=== PATIENT | male | born 1965 | race Caucasian/White ===

== ENCOUNTER 2017-10-24 12:34 | Day surgery (SDC) | payer OTHER ==
[2017-10-20 10:22] VITALS: BMI 36.8
[~2017-10-24 12:34] MED LIST: LACTATED RINGERS 1,000 ML IV SCH; LIDOCAINE 1% 20 ML VIAL (10MG/ML) FOR IV START INTRADERMA PRN
[2017-10-24 13:00] VITALS: TEMP 98.3
[2017-10-24] MEDS ORDERED: LIDOCAINE 1% INJ 10MG/ML (20 ML MDV) ONE (13:10)
[2017-10-24] MEDS ORDERED: PROPOFOL 10 MG/ML 20 ML VIAL IV ONE (13:10)
--- NOTE | 2017-10-24 13:55 | P.PCN ---
Date of Procedure: 10/24/17 Procedure(s) Performed: Procedures: 1. Esophagogastroduodenoscopy and biopsy. 2. Total colonoscopy. Preoperative diagnosis: Dysphagia and blood in the stools. Postoperative diagnosis: 1. Distal esophageal lesion starting at the xuan-GE junction at around 31 cm from the incisors consistent with malignancy. 2. 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 3. Sigmoid diverticulosis with no evidence of acute diverticulitis, strictures, polyps or cancer. Preparation: GoLYTELY prep. Sedation: Was provided by anesthesia. Brief clinical history: The patient is a 52-year-old male who is scheduled for this evaluation because of recent onset of dysphagia around 6 weeks ago and 20 pound weight loss. He was hospitalized 3 years ago because of epigastric pain and atypical chest pain. He also had anemia and dropped his hemoglobin to 6.6. 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 His colonoscopy showed sigmoid diverticulosis. The patient has been having dysphagia for the last 6 weeks or so. He lost 20 pounds over that period of time. He was also noted to have blood in his stools. Procedure: With the patient on his left lateral decubitus position and after informed consent and adequate sedation, I passed the Olympus-GIF 160 video upper endoscope through the cricopharyngeus down the esophagus. The xuan-GE junction was around 30-31 cm from the incisors and it was irregular. There was a circumferential lesion starting at that level with nodularity and friability. The lesion extended into the distal esophagus. There appeared to be a hiatal hernia and I suspected this lesion is in the Champagne's segment which could have been around 3-4 cm in length. There was no obstruction to the lumen and I was able to pass the endoscope into the stomach which was insufflated with air and inspected in detail including the retroflex view in the cardia. There was some friability and oozing of blood noted coming from the distal esophagus but no mass was seen in the cardia. The stomach did not show any obvious abnormalities. Pyloric channel, duodenal bulb, post bulbar area and descending duodenum appeared within normal limits. I obtained multiple biopsies from the distal esophagus then I proceeded with the colonoscopy. Perianal area did not show any fissures or fistulas. There were no masses felt on digital rectal examination. The Olympus CFQ 160L video colonoscope was then inserted in the rectum in the usual fashion and advanced to the cecum. There were multiple diverticular orifices seen scattered in the sigmoid but I saw no evidence of acute diverticulitis or strictures. No polyps or tumors were seen or any potential sources of bleeding in the colon. I retroflexed the endoscope in the rectum before the endoscope was withdrawn. Disposition: The patient tolerated the procedure well. Plan: I summarized the findings to the patient. Will await biopsy results and make further plans.
[2017-10-24 13:58] VITALS: BP 129/72; PULSE 55; RESP 18
== END 2017-10-24 14:20 | disposition home or self-care (01) ==
LOC: ORWHC2ENDO 12:34
DX: C16.0 Malignant neoplasm of cardia (principal); K57.30 Diverticulosis of large intestine without perforation or abscess without bleeding; K44.9 Diaphragmatic hernia without obstruction or gangrene; I10 Essential (primary) hypertension; E78.5 Hyperlipidemia, unspecified; Z86.73 Personal history of transient ischemic attack (TIA), and cerebral infarction without residual deficits; Z88.0 Allergy status to penicillin; Z88.8 Allergy status to other drugs, medicaments and biological substances; Z79.02 Long term (current) use of antithrombotics/antiplatelets; Z79.82 Long term (current) use of aspirin; Z79.899 Other long term (current) drug therapy
CPT/HCPCS: 88305; 43239; J2001; J2704; G0121

== ENCOUNTER → 2017-11-12 | Outpatient (CLI) | payer OTHER ==
--- NOTE | 2017-11-14 13:35 | PE ---
EXAMINATION TYPE: PET CT fusion skull to thigh DATE OF EXAM: 11/12/2017 COMPARISON: NONE HISTORY: Esophageal carcinoma. Initial treatment strategy (PI). No prior chemotherapy or radiation. S taging exam. Known solitary pulmonary nodule within the right lung. TECHNIQUE: Following the intravenous administration of 13.21 mCi of F-18 FDG, whole body images are performed from the skull base to the midthigh. Images are reviewed on the computer in the coronal, a xial, and sagittal planes. Reconstructed rotating images are created on independent workstation and reviewed on the computer. A localization and attenuation correction CT is performed in conjunction with the PET scan. SCAN: Initial FINDINGS: Mediastinal background: 1.89. Abdominal background: 3.29. SKULL BASE AND NECK: No suspicious hypermetabolic activity. CHEST, MEDIASTINUM, AND HILAR REGION: The known primary neoplasm beginning above the gastroesophageal junction within the distal esophagus and crossing the diaphragmatic hiatus into the upper stomach is hypermetabolic with a maximum SUV of 12.35. On reconstructed images this measures approximately 5.8 cm in length, 3.5 cm in transverse dimension and 3.3 cm in anterior posterior dimension. There is no proximal dilation of the esophagus to suggest obstruction. No suspicious hypermetabolic mediastinal lymph nodes are identified. No supraclavicular adenopathy. There is a 5 mm pulmonary nodule on series 3 image 85 within the right middle lobe. This is below the threshold of PET CT. Minimal bibasilar subsegmental atelectasis is seen. Otherwise no additional pul monary nodules or masses are identified. No focal consolidation or pleural effusion. ABDOMEN AND PELVIS: No suspicious hypermetabolic activity. OSSEOUS STRUCTURES: Slightly hypermetabolic activity is seen within the L4 and L5 vertebral bodies wi th maximum SUV of 3.37 and 3.25 respectively. No suspicious osseous lesion is seen. OTHER CT: Mild multilevel degenerative changes of the spine are seen. Paranasal sinuses are well aera adam. No evidence of mediastinal adenopathy. Moderate coronary artery calcifications are seen, a marke r for coronary artery disease. Minimal asymmetric retroareolar gynecomastia is present. No axillary a denopathy. Subsegmental scattered areas of atelectasis are seen within the lungs. The unenhanced live r, spleen, adrenal glands, kidneys, and pancreas are grossly unremarkable in morphology. No nephrolit hiasis or hydronephrosis. Colonic diverticula are seen without pericolonic fat stranding. No greater than 1 cm short axis lymph nodes within the abdomen or pelvis. There is slight thickening in a long s egment of the sigmoid colon that could relate to sequela of chronic diverticulitis. Prostate gland is heterogenous containing central zone calcifications. Urinary bladder is incompletely distended. IMPRESSION: 1. Primary distal esophageal hypermetabolic carcinoma with no adenopathy of the neck, chest, abdomen, or pelvis. 2. No evidence of visceral metastasis, however the 5 mm right middle lobe pulmonary nodule is below t he threshold of PET CT and therefore continued surveillance is recommended for this nodule. 3. Slight hypermetabolic focal activity of the L4 and L5 vertebral bodies without corresponding abnor mality on CT. Enhanced MR lumbar spine could be performed to evaluate for bone marrow replacing metas tasis versus degenerative change.
== END | disposition home or self-care (01) ==
LOC: RADPETMAIN 14:23
PROVIDERS: ATTEND Internal Medicine Hematology & Oncology
DX: C15.5 Malignant neoplasm of lower third of esophagus (principal); R91.1 Solitary pulmonary nodule
CPT/HCPCS: 78815; A9552

== ENCOUNTER 2017-12-05 07:25 | Emergency (ER) | payer OTHER ==
[2017-12-05] MEDS ORDERED: SODIUM CHLORIDE 0.9% 500 ML IV STA (07:42)
[2017-12-05] MEDS ORDERED: ONDANSETRON 4 MG/2 ML VIAL IM STA (07:42)
[2017-12-05 08:14] VITALS: RESP 18
[2017-12-05 08:19] LABS: Anisocytosis Moderate; Basophils % (A) 1 %; Eosinophils # (A) 0.2 k/uL (0-0.7); Eosinophils % (A) 3 %; HCT 28.3 % (39.0-53.0); Hypochromasia Marked; Lymphocytes # (A) 1.5 k/uL (1.0-4.8); Lymphocytes % (A) 17 %; MCH 27.1 pg (25.0-35.0); MCHC 31.8 g/dL (31.0-37.0); MCV 85.2 fL (80.0-100.0); Mean Platelet Volume 8.7; Microcytosis Slight; Monocytes # (A) 0.5 k/uL (0-1.0); Monocytes % (A) 5 %; Neutrophils # (A) 6.4 k/uL (1.3-7.7); Neutrophils % (A) 72 %; Platelet Count 341 k/uL (150-450); Poikilocytosis Slight; RBC 3.32 m/uL (4.30-5.90); RDW 21.1 % (11.5-15.5); WBC 8.9 k/uL (3.8-10.6)
[2017-12-05 08:26] LABS: Partial Thromboplastin Time 24.5 sec (22.0-30.0); Prothrombin Time 10.2 sec (9.0-12.0)
[2017-12-05 08:27] LABS: ALT 32 U/L (21-72); AST 20 U/L (17-59); Albumin 3.8 g/dL (3.5-5.0); Alkaline Phosphatase 95 U/L (38-126); Anion Gap 11 mmol/L; Blood Urea Nitrogen 24 mg/dL (9-20); Calcium 8.8 mg/dL (8.4-10.2); Carbon Dioxide 25 mmol/L (22-30); Chloride 105 mmol/L (98-107); Glucose 112 mg/dL (74-99); Lipase 94 U/L (23-300); Potassium 4.5 mmol/L (3.5-5.1); Sodium 141 mmol/L (137-145); Total Bilirubin 0.5 mg/dL (0.2-1.3); Total Protein 6.1 g/dL (6.3-8.2)
[2017-12-05] MEDS ORDERED: PANTOPRAZOLE 40 MG/10 ML VIAL IVP STA (09:23)
--- NOTE | 2017-12-05 10:00 | ED ---
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 This is been progressing over the past 12 hours. Patient reports over the past few days he has had dark stool. He is scheduled for radiation and chemotherapy, he has not had any treatment to date. Patient denies any pain complaints. He has had some worsening difficulty swallowing over the past several weeks as well. He is currently on Plavix which he takes for history of CVA. No other anticoagulation. - Related Data Home Medications Medication Instructions Recorded Confirmed Losartan Potassium [Cozaar] 100 mg PO HS 10/29/14 12/05/17 Aspirin [Adult Low Dose Aspirin EC] 81 mg PO HS 10/20/17 12/05/17 Clopidogrel [Plavix] 75 mg PO HS 10/20/17 12/05/17 Simvastatin [Zocor] 40 mg PO HS 10/20/17 12/05/17 Iron(Uknown Dose) 1 tab PO HS 12/05/17 12/05/17 Omeprazole [PriLOSEC] 20 mg PO HS 12/05/17 12/05/17 Allergies Allergy/AdvReac Type Severity Reaction Status Date / Time atenolol [From Tenormin] Allergy Rash/Hives Verified 12/05/17 07:37 honey Allergy Swelling Verified 12/05/17 08:17 lisinopril [From Prinivil] Allergy Rash/Hives Verified 12/05/17 07:37 Penicillins Allergy Rash/Hives Verified 12/05/17 07:37 Review of Systems ROS Statement: Those systems with pertinent positive or pertinent negative responses have been documented in the HPI. ROS Other: All systems not noted in ROS Statement are negative. Past Medical History Past Medical History: Cancer, CVA/TIA, GI Bleed, Hyperlipidemia, Hypertension Additional Past Medical History / Comment(s): DYSPHAGIA, CVA 2009, STATES RT SIDE OF FACE NUMB, esophageal cancer History of Any Multi-Drug Resistant Organisms: None Reported Past Surgical History: Orthopedic Surgery Additional Past Surgical History / Comment(s): BONE SPUR REMOVED, EGD Past Anesthesia/Blood Transfusion Reactions: No Reported Reaction Additional Past Anesthesia/Blood Transfusion Reaction / Comment(s): CLAUSTERPHOBIA Past Psychological History: No Psychological Hx Reported Smoking Status: Former smoker Past Alcohol Use History: Occasional Past Drug Use History: None Reported - Past Family History Father Family Medical History: COPD Mother Family Medical History: Cancer General Exam Limitations: no limitations General appearance: alert, in no apparent distress Head exam: Present: atraumatic, normocephalic Eye exam: Present: normal appearance, PERRL ENT exam: Present: normal exam Neck exam: Present: normal inspection. Absent: tenderness, meningismus Respiratory exam: Present: normal lung sounds bilaterally. Absent: respiratory distress, wheezes Cardiovascular Exam: Present: regular rate, normal rhythm GI/Abdominal exam: Present: soft. Absent: distended, tenderness, guarding Rectal exam: Present: normal inspection, heme (+) stool, black stool Extremities exam: Present: normal inspection, normal capillary refill. Absent: pedal edema Neurological exam: Present: alert, oriented X3. Absent: motor sensory deficit Psychiatric exam: Present: normal affect, normal mood Skin exam: Present: warm, pallor Course Vital Signs 12/05/17 12/05/17 07:34 08:13 Temperature 98.2 F Pulse Rate 79 80 Respiratory 20 18 Rate Blood Pressure 115/74 113/63 O2 Sat by Pulse 98 99 Oximetry Medical Decision Making - Medical Decision Making 52-year-old male with recent diagnosis of adenocarcinoma. Patient has had both care at this institution as well as [facility]. He is scheduled for PEG tube next week at [facility] as well as [facility]. There is planned for tumor resection orbit according to the patient is not planned until February. On exam patient is pale: Vital signs are stable. Hemoglobin is 9 from recent baseline of 13. He does have melanotic stool and has had several episodes of hematemesis with blood clots while in the emergency department. He is given normal saline for resuscitation as well as Protonix. Case is discussed with the patient's apprentice cook, at this time given his tumor location and active bleeding and recommends transfer to [facility] with the patient is known. Case discussed with , at [facility], will accept patient as a transfer. - Lab Data Result diagrams: 12/05/17 07:55 12/05/17 07:55 Lab Results 12/05/17 12/05/17 12/05/17 Range/Units 07:55 07:55 07:55 WBC 8.9 (3.8-10.6) k/uL RBC 3.32 L (4.30-5.90) m/uL Hgb 9.0 L D (13.0-17.5) gm/dL Hct 28.3 L (39.0-53.0) % MCV 85.2 (80.0-100.0) fL MCH 27.1 (25.0-35.0) pg MCHC 31.8 (31.0-37.0) g/dL RDW 21.1 H (11.5-15.5) % Plt Count 341 (150-450) k/uL Neutrophils % 72 % Lymphocytes % 17 % Monocytes % 5 % Eosinophils % 3 % Basophils % 1 % Neutrophils # 6.4 (1.3-7.7) k/uL Lymphocytes # 1.5 (1.0-4.8) k/uL Monocytes # 0.5 (0-1.0) k/uL Eosinophils # 0.2 (0-0.7) k/uL Basophils # 0.0 (0-0.2) k/uL Hypochromasia Marked Poikilocytosis Slight Anisocytosis Moderate Microcytosis Slight PT (9.0-12.0) sec INR (<1.2) APTT (22.0-30.0) sec Sodium 141 (137-145) mmol/L Potassium 4.5 (3.5-5.1) mmol/L Chloride 105 (98-107) mmol/L Carbon Dioxide 25 (22-30) mmol/L Anion Gap 11 mmol/L BUN 24 H (9-20) mg/dL Creatinine 0.81 (0.66-1.25) mg/dL Est GFR (CKD-EPI)AfAm >90 (>60 ml/min/1.73 sqM) Est GFR (CKD-EPI)NonAf >90 (>60 ml/min/1.73 sqM) Glucose 112 H (74-99) mg/dL Plasma Lactic Acid Chapin 0.8 (0.7-2.0) mmol/L Calcium 8.8 (8.4-10.2) mg/dL Magnesium 2.0 (1.6-2.3) mg/dL Total Bilirubin 0.5 (0.2-1.3) mg/dL AST 20 (17-59) U/L ALT 32 (21-72) U/L Alkaline Phosphatase 95 (38-126) U/L Total Protein 6.1 L (6.3-8.2) g/dL Albumin 3.8 (3.5-5.0) g/dL Lipase 94 (23-300) U/L Stool Occult Blood (Negative) 12/05/17 12/05/17 Range/Units 07:55 08:10 WBC (3.8-10.6) k/uL RBC (4.30-5.90) m/uL Hgb (13.0-17.5) gm/dL Hct (39.0-53.0) % MCV (80.0-100.0) fL MCH (25.0-35.0) pg MCHC (31.0-37.0) g/dL RDW (11.5-15.5) % Plt Count (150-450) k/uL Neutrophils % % Lymphocytes % % Monocytes % % Eosinophils % % Basophils % % Neutrophils # (1.3-7.7) k/uL Lymphocytes # (1.0-4.8) k/uL Monocytes # (0-1.0) k/uL Eosinophils # (0-0.7) k/uL Basophils # (0-0.2) k/uL Hypochromasia Poikilocytosis Anisocytosis Microcytosis PT 10.2 (9.0-12.0) sec INR 1.0 (<1.2) APTT 24.5 (22.0-30.0) sec Sodium (137-145) mmol/L Potassium (3.5-5.1) mmol/L Chloride (98-107) mmol/L Carbon Dioxide (22-30) mmol/L Anion Gap mmol/L BUN (9-20) mg/dL Creatinine (0.66-1.25) mg/dL Est GFR (CKD-EPI)AfAm (>60 ml/min/1.73 sqM) Est GFR (CKD-EPI)NonAf (>60 ml/min/1.73 sqM) Glucose (74-99) mg/dL Plasma Lactic Acid Chapin (0.7-2.0) mmol/L Calcium (8.4-10.2) mg/dL Magnesium (1.6-2.3) mg/dL Total Bilirubin (0.2-1.3) mg/dL AST (17-59) U/L ALT (21-72) U/L Alkaline Phosphatase (38-126) U/L Total Protein (6.3-8.2) g/dL Albumin (3.5-5.0) g/dL Lipase (23-300) U/L Stool Occult Blood Positive (Negative) Disposition Clinical Impression: GI bleed, Melena, Esophageal adenocarcinoma Disposition: OTHER INSTITUTION NOT DEFINED Condition: Stable Is patient prescribed a controlled substance at d/c from ED?: No Referrals: Neeru Ordonez DO [Primary Care Provider] - 1-2 days Time of Disposition: 10:00 - Out of Hospital Transfer - Req. Specs Out of Hospital Transfer - Requested Specifics: Intensive Care Unit (Transfer to [facility])
[2017-12-05 12:42] VITALS: BP 107/63; PULSE 82; TEMP 98
== END 2017-12-05 11:10 | disposition short-term general hospital (02) ==
LOC: EC 07:25
DX: C15.9 Malignant neoplasm of esophagus, unspecified (principal); K92.1 Melena; K92.0 Hematemesis; R23.1 Pallor; E78.5 Hyperlipidemia, unspecified; I10 Essential (primary) hypertension; Z87.891 Personal history of nicotine dependence; Z79.02 Long term (current) use of antithrombotics/antiplatelets; Z79.82 Long term (current) use of aspirin; Z79.899 Other long term (current) drug therapy; Z88.0 Allergy status to penicillin; Z88.8 Allergy status to other drugs, medicaments and biological substances; Z91.018 Allergy to other foods; Z86.73 Personal history of transient ischemic attack (TIA), and cerebral infarction without residual deficits
CPT/HCPCS: 36415; 80053; 83605; 83690; 83735; 85025; 85610; 85730; 82272; 99285; 96374; 96361 ×2; 96372; J2405; C9113

== ENCOUNTER → 2018-06-22 | Outpatient (CLI) | payer OTHER ==
--- NOTE | 2018-06-22 09:27 | CT ---
EXAMINATION TYPE: CT chest w con DATE OF EXAM: 06/22/2018 COMPARISON: 03/09/2010 HISTORY: ESO CA CT DLP: 607 mGycm Automated exposure control for dose reduction was used. CONTRAST: CT scan of the chest is performed with IV Contrast, patient injected with 100 mL of Isovue 300. FINDINGS: LUNGS: Groundglass density left upper lobe. Mild parenchymal scarring and bibasilar regions. No yonathan rning nodules or masses. There is no pleural effusion or pneumothorax seen. The tracheobronchial kathleen e is patent. MEDIASTINUM: Esophagectomy changes with gastric pull-through procedure. No evidence for recurrent or residual mass. Fluid debris is noted within the neoesophagus. No evidence for mediastinal adenopathy or mass. UPPER ABDOMEN: Mild fatty hepatic infiltration. OTHER: No additional significant abnormality is seen. IMPRESSION: 1. Postoperative changes of esophagectomy with gastric pull-through procedure. No evidence for recurr ent disease or metastatic disease within the imaged field.
== END | disposition home or self-care (01) ==
LOC: RADPROMAIN 08:20
PROVIDERS: ATTEND Internal Medicine Hematology & Oncology
DX: Z03.89 Encounter for observation for other suspected diseases and conditions ruled out (principal); Z85.01 Personal history of malignant neoplasm of esophagus; Z90.49 Acquired absence of other specified parts of digestive tract
CPT/HCPCS: 71260; J1642; Q9967

== ENCOUNTER → 2018-09-22 | Outpatient (CLI) | payer OTHER ==
--- NOTE | 2018-09-22 14:46 | CT ---
EXAMINATION TYPE: CT chest w con DATE OF EXAM: 09/22/2018 COMPARISON: 06/22/2018 HISTORY: Esophageal cancer CT DLP: 391.5 mGycm, Automated exposure control for dose reduction was used. CONTRAST: Performed injected with 100 mL of Isovue 300. TECHNIQUE: Axial images were obtained at 5 mm thick sections. Reconstructed images are reviewed on [employer] computer in the coronal plane. FINDINGS: Portion of the thyroid visualized is normal. No suspicious lung nodules or focal infiltrates are present. No enlarged mediastinal or hilar adenopathy is evident. The ascending aorta diameter at the level o f the main pulmonary artery is 2.7 cm. The main pulmonary artery diameter at the bifurcation is 2.[address] sections are obtained through the upper abdomen. There is been a gastric pull-through. Flu id and debris is within the gastric pull-through to the junction with the residual esophagus. IMPRESSIONS: 1. Stable gastric pull-through. No suspicious changes for recurrent or metastatic disease.
== END ==
LOC: RADPROMAIN 08:17
PROVIDERS: ATTEND Internal Medicine Hematology & Oncology
DX: C15.5 Malignant neoplasm of lower third of esophagus (principal)
CPT/HCPCS: 71260; J1642; Q9967

== ENCOUNTER 2019-02-12 08:47 | Emergency (ER) | payer OTHER ==
[2019-02-12] MEDS ORDERED: SODIUM CHLORIDE 0.9% 500 ML 500 ML IV STA (09:19)
--- NOTE | 2019-02-12 09:28 | ED ---
General Adult HPI - General Chief complaint: Abdominal Pain Stated complaint: Constipation Time Seen by Provider: 02/12/19 09:02 Source: patient, RN notes reviewed Mode of arrival: ambulatory Limitations: no limitations - History of Present Illness Initial comments: 53-year-old male with a past medical history of esophageal cancer with resection a year ago, CVA, hyperlipidemia, hypertension, GI bleed presents to the emergency department for a chief complaint of lower abdominal pain. Sates that this started 2 days ago. States that he started [place] about a week and a half to 2 weeks ago and had not been taking stool softeners with this. States he has not had a bowel movement for 6 days. Does admit to nausea and vomiting with one episode of vomiting last night. No vomiting today. Patient has no other complaints at this time including shortness of breath, chest pain, abdominal pain, nausea or vomiting, headache, or visual changes. - Related Data Home Medications Medication Instructions Recorded Confirmed Clopidogrel [Plavix] 75 mg PO DAILY 10/20/17 02/12/19 Simvastatin [Zocor] 40 mg PO DAILY 10/20/17 02/12/19 Omeprazole [PriLOSEC] 20 mg PO HS 12/05/17 02/12/19 Allergies Allergy/AdvReac Type Severity Reaction Status Date / Time atenolol [From Tenormin] Allergy Rash/Hives Verified 02/12/19 09:26 honey Allergy Swelling Verified 02/12/19 09:26 lisinopril [From Prinivil] Allergy Rash/Hives Verified 02/12/19 09:26 Penicillins Allergy Rash/Hives Verified 02/12/19 09:26 Review of Systems ROS Statement: Those systems with pertinent positive or pertinent negative responses have been documented in the HPI. ROS Other: All systems not noted in ROS Statement are negative. Past Medical History Past Medical History: Cancer, CVA/TIA, GI Bleed, Hyperlipidemia, Hypertension Additional Past Medical History / Comment(s): DYSPHAGIA, CVA 2009, STATES RT SIDE OF FACE NUMB, esophageal cancer History of Any Multi-Drug Resistant Organisms: None Reported Past Surgical History: Orthopedic Surgery Additional Past Surgical History / Comment(s): BONE SPUR REMOVED, EGD. Esophageal Surgery - 2017. Mediport and Feeding Tube - 2017 Past Anesthesia/Blood Transfusion Reactions: No Reported Reaction Additional Past Anesthesia/Blood Transfusion Reaction / Comment(s): CLAUSTERPHOBIA Past Psychological History: No Psychological Hx Reported Smoking Status: Former smoker Past Alcohol Use History: None Reported Past Drug Use History: None Reported - Past Family History Father Family Medical History: COPD Mother Family Medical History: Cancer General Exam Limitations: no limitations General appearance: alert, in no apparent distress Head exam: Present: atraumatic, normocephalic, normal inspection Eye exam: Present: normal appearance, PERRL, EOMI. Absent: scleral icterus, conjunctival injection, periorbital swelling ENT exam: Present: normal exam, mucous membranes moist Neck exam: Present: normal inspection, full ROM. Absent: tenderness, meningismus, lymphadenopathy Respiratory exam: Present: normal lung sounds bilaterally. Absent: respiratory distress, wheezes, rales, rhonchi, stridor Cardiovascular Exam: Present: regular rate, normal rhythm, normal heart sounds. Absent: systolic murmur, diastolic murmur, rubs, gallop, clicks GI/Abdominal exam: Present: soft, tenderness (mild LLQ and suprapubic tenderness without guarding or rebound), normal bowel sounds. Absent: distended, guarding, rebound, rigid Neurological exam: Present: alert Psychiatric exam: Present: normal affect, normal mood Course Vital Signs 02/12/19 02/12/19 02/12/19 08:53 08:56 11:00 Temperature 98.2 F 98.2 F Pulse Rate 87 83 73 Respiratory 18 18 14 Rate Blood Pressure 108/80 108/80 108/77 O2 Sat by Pulse 99 99 98 Oximetry 02/12/19 13:34 Temperature 98.1 F Pulse Rate 66 Respiratory 14 Rate Blood Pressure 107/70 O2 Sat by Pulse 98 Oximetry - Reevaluation(s) Reevaluation #1: 02/12/19 14:55 Myself and mental health unit lead psychologist glen attempted many phone calls to [facility] over the past hour. [facility] where patient has had his esophageal resection and gastric pull-through. Called Dr Irvin Wagner office number given to me by patient, which had a busy signal. I have also attempted to call [phone], which is another office number. I called which is the main hospital and it did not ring. Glen also attempted to call her numbers on file. Medical Decision Making - Medical Decision Making 53-year-old male with a past medical history of esophageal cancer with resection a year ago at [facility], CVA, hyperlipidemia, hypertension, GI bleed presents to the emergency department for lower abdominal pain. This started 2 days ago. States that he has not had a bowel movement for 6 days because he started a [place] about a week and a half ago and has not had any stool softeners with this. Patient did have one episode of vomiting last night, no vomiting today. On exam he does have some left lower quadrant tenderness. Initially thought to be related to constipation given recent opioid use and lack of bowel movement. Labs were obtained which were unremarkable. Mild cytosis likely reactive. CMP is unremarkable. A KUB and initially obtained which showed a mild degree of colonic fecal stasis and overall nonobstructive bowel gas pattern. She was given enema with minimal relief. Therefore CT of the abdomen and pelvis was ordered. CT shows altered hepatic perfusion to nearly the e ntirety of the right lobe thrombus in the main portal vein versus IVC is questionable according to radiologist. Lactic acid was obtained which was 1.3. There is a complex masslike fluid collection in the left lower quadrant that appears to be associated with small bowel loops with surrounding inflammatory change. Superinfected neoplasm versus abscess are considerations. Partial small bowel obstruction. Further findings show soft tissue density within a loop of small bowel which may be site of small bowel neoplasm possible. Also dependent simple free fluid. PTT PT-INR pending at this time. Patient given a dose of Rocephin given possibility of abscess and superinfected neoplasm. Paticherelle nt has had surgery for esophageal cancer at [facility] by Dr. Irvin Wagner and at this time we both feel patient would benefit from transfer to this facility. Discussed this case with Dr. Conklin who accepts this transfer. patient was not started on heparin at this time given risk of GI bleed and Plavix - Lab Data Result diagrams: 02/12/19 09:23 02/12/19 09:23 Lab Results 02/12/19 02/12/19 02/12/19 Range/Units 09:23 09:23 13:15 WBC 12.5 H (3.8-10.6) k/uL RBC 4.36 (4.30-5.90) m/uL Hgb 12.3 L (13.0-17.5) gm/dL Hct 37.1 L (39.0-53.0) % MCV 85.2 (80.0-100.0) fL MCH 28.1 (25.0-35.0) pg MCHC 33.0 (31.0-37.0) g/dL RDW 15.2 (11.5-15.5) % Plt Count 276 (150-450) k/uL Neutrophils % 84 % Lymphocytes % 7 % Monocytes % 6 % Eosinophils % 1 % Basophils % 1 % Neutrophils # 10.5 H (1.3-7.7) k/uL Lymphocytes # 0.9 L (1.0-4.8) k/uL Monocytes # 0.7 (0-1.0) k/uL Eosinophils # 0.1 (0-0.7) k/uL Basophils # 0.1 (0-0.2) k/uL PT (9.0-12.0) sec INR (<1.2) APTT (22.0-30.0) sec Sodium 139 (137-145) mmol/L Potassium 5.0 (3.5-5.1) mmol/L Chloride 101 (98-107) mmol/L Carbon Dioxide 28 (22-30) mmol/L Anion Gap 10 mmol/L BUN 14 (9-20) mg/dL Creatinine 0.63 L (0.66-1.25) mg/dL Est GFR (CKD-EPI)AfAm >90 (>60 ml/min/1.73 sqM) Est GFR (CKD-EPI)NonAf >90 (>60 ml/min/1.73 sqM) Glucose 104 H (74-99) mg/dL Plasma Lactic Acid Chap[place] 1.3 (0.7-2.0) mmol/L Calcium 9.5 (8.4-10.2) mg/dL Total Bilirubin 1.0 (0.2-1.3) mg/dL AST 74 H (17-59) U/L ALT 64 (21-72) U/L Alkaline Phosphatase 349 H (38-126) U/L Total Protein 7.0 (6.3-8.2) g/dL Albumin 3.9 (3.5-5.0) g/dL Amylase 50 (30-110) U/L Lipase 60 (23-300) U/L 02/12/19 Range/Units 14:55 WBC (3.8-10.6) k/uL RBC (4.30-5.90) m/uL Hgb (13.0-17.5) gm/dL Hct (39.0-53.0) % MCV (80.0-100.0) fL MCH (25.0-35.0) pg MCHC (31.0-37.0) g/dL RDW (11.5-15.5) % Plt Count (150-450) k/uL Neutrophils % % Lymphocytes % % Monocytes % % Eosinophils % % Basophils % % Neutrophils # (1.3-7.7) k/uL Lymphocytes # (1.0-4.8) k/uL Monocytes # (0-1.0) k/uL Eosinophils # (0-0.7) k/uL Basophils # (0-0.2) k/uL PT 10.7 (9.0-12.0) sec INR 1.0 (<1.2) APTT 28.7 (22.0-30.0) sec Sodium (137-145) mmol/L Potassium (3.5-5.1) mmol/L Chloride (98-107) mmol/L Carbon Dioxide (22-30) mmol/L Anion Gap mmol/L BUN (9-20) mg/dL Creatinine (0.66-1.25) mg/dL Est GFR (CKD-EPI)AfAm (>60 ml/min/1.73 sqM) Est GFR (CKD-EPI)NonAf (>60 ml/min/1.73 sqM) Glucose (74-99) mg/dL Plasma Lactic Acid [place] (0.7-2.0) mmol/L Calcium (8.4-10.2) mg/dL Total Bilirubin (0.2-1.3) mg/dL AST (17-59) U/L ALT (21-72) U/L Alkaline Phosphatase (38-126) U/L Total Protein (6.3-8.2) g/dL Albumin (3.5-5.0) g/dL Amylase (30-110) U/L Lipase (23-300) U/L Disposition Clinical Impression: Portal vein thrombosis, Mass of colon, Partial small bowel obstruction Disposition: OTHER INSTITUTION NOT DEFINED Condition: Fair Is patient prescribed a controlled substance at d/c from ED?: No Referrals: Neeru Ordonez DO [Primary Care Provider] - 1-2 days Time of Disposition: 14:12 - Out of Hospital Transfer - Req. Specs Out of Hospital Transfer - Requested Specifics: Other Emergency Center ([facility])
[2019-02-12 09:42] LABS: Basophils # (A) 0.1 k/uL (0-0.2); Basophils % (A) 1 %; Eosinophils # (A) 0.1 k/uL (0-0.7); Eosinophils % (A) 1 %; HCT 37.1 % (39.0-53.0); HGB 12.3 gm/dL (13.0-17.5); Lymphocytes # (A) 0.9 k/uL (1.0-4.8); Lymphocytes % (A) 7 %; MCH 28.1 pg (25.0-35.0); MCV 85.2 fL (80.0-100.0); Mean Platelet Volume 9.6; Monocytes # (A) 0.7 k/uL (0-1.0); Monocytes % (A) 6 %; Neutrophils # (A) 10.5 k/uL (1.3-7.7); Neutrophils % (A) 84 %; Platelet Count 276 k/uL (150-450); RBC 4.36 m/uL (4.30-5.90); RDW 15.2 % (11.5-15.5); WBC 12.5 k/uL (3.8-10.6)
--- NOTE | 2019-02-12 09:50 | XR ---
EXAMINATION TYPE: XR KUB DATE OF EXAM: 02/12/2019 9:46 AM CLINICAL HISTORY: Abdominal pain. History of esophageal cancer and gastric pull-through. Constipatio n. TECHNIQUE: Single upright of the abdomen is obtained. COMPARISON: None. FINDINGS: Mild degree colonic fecal stasis. No dilated large or small bowel. No pneumoperitoneum. Aimee gical clips and left mid abdomen. Lung bases are well aerated. Osseous structures appear intact. No s uspicious calcifications in the abdomen or pelvis. IMPRESSION: Mild degree colonic fecal stasis in an overall nonobstructive bowel gas pattern.
[2019-02-12 09:58] LABS: ALT 64 U/L (21-72); AST 74 U/L (17-59); African American GFR (CKD) >90 (>60 ml/min/1.73 sqM); Albumin 3.9 g/dL (3.5-5.0); Alkaline Phosphatase 349 U/L (38-126); Amylase 50 U/L (30-110); Anion Gap 10 mmol/L; Blood Urea Nitrogen 14 mg/dL (9-20); Calcium 9.5 mg/dL (8.4-10.2); Carbon Dioxide 28 mmol/L (22-30); Chloride 101 mmol/L (98-107); Glucose 104 mg/dL (74-99); Sodium 139 mmol/L (137-145)
[2019-02-12] MEDS ORDERED: KETOROLAC 30 MG/ML 1 ML VIAL IVP STA (10:01)
[2019-02-12 11:10] VITALS: RESP 14
--- NOTE | 2019-02-12 13:09 | CT ---
EXAMINATION TYPE: CT abdomen pelvis w con DATE OF EXAM: 02/12/2019 COMPARISON: 03/09/2010 HISTORY: Constipation. History of esophageal cancer. CT DLP: 859.9 mGycm Automated exposure control for dose reduction was used. TECHNIQUE: Helical acquisition of images was performed from the lung bases through the pelvis. CONTRAST: Performed without Oral Contrast and with IV Contrast, patient injected with 100 mL of Isovue 300. FINDINGS: LUNG BASES: New nodular opacity is seen at the left lung base. Areas of linear pleural parenchymal sc arring are seen at the right lung base with subpleural bleb versus tiny pneumothorax. LIVER/GB: There is altered perfusion of the liver with decreased attenuation of the majority the righ t hepatic lobe and preserved perfusion of the left hepatic lobe. There is some patchy opacification o f the portal vein near the carina hepatis on image 19. Given the hepatic findings portal venous thromb us is possible. Mixing of contrast is seen in the suprahepatic and intrahepatic inferior vena cava wi th nonopacification of the inferior vena cava below the renal veins. Too small to accurately characte rize hepatic lesiona is seen along the inferior medial right hepatic lobe. No cholelithiasis. PANCREAS: Pancreatic parenchymal atrophy. No discrete pancreatic lesion seen. SPLEEN: Small amount of perisplenic fluid. No splenic subcapsular hematoma or laceration seen. ADRENALS: Slight thickening of the left adrenal gland may relate to adrenal gland hyperplasia. No dis crete measurable nodule. KIDNEYS: Too small to accurately characterize left renal lesion and parenchymal scarring of the right kidney. No hydronephrosis of either kidney. FREE AIR: No free air is seen. Right lower quadrant air remains within the appendix. ADENOPATHY: No gross evidence of greater than 1 cm short axis lymph node in the abdomen or pelvis. F ew scattered nonenlarged mesenteric lymph nodes seen. The largest on coronal image 40r measuring 7 mm . REPRODUCTIVE ORGANS: Heterogenous prostate gland. URINARY BLADDER: High density layering within the urinary bladder could relate to small calculi. OSSEOUS STRUCTURES: Multilevel mild degenerative changes of the spine. BOWEL: There is mesenteric congestion and mesenteric fat stranding in the left lower quadrant. There is also a left lower quadrant complex density measuring 4.2 x 4.0 cm with internal air that appears to be intimately associated with if not contiguous with loops of small bowel. This is also seen on co gabriele image 35 through 45. Prominent surrounding lymph nodes are seen. This could relate to a mesente tatum/small bowel mass or abscess. Given the degree of fat stranding abscess is a primary consideration . Cranial to this postsurgical changes are seen of the left paracentral ventral abdominal wall in the rectus abdominis. Multiple loops of mildly dilated fluid-filled small bowel are also seen with abnor mal soft tissue density creating a transition point in the left lower quadrant on image 40. This is r edemonstrated on coronal image 58. Moderate colonic fecal stasis. Postsurgical change of the gastric pull-through is partially seen. OTHER: Small amount of free fluid layers within the pelvis dependently. This is simple appearing. IMPRESSION: 1. ALTERED HEPATIC PERFUSION TO NEARLY THE ENTIRETY OF THE RIGHT LOBE. THROMBUS IS QUESTION OF THE MA IN PORTAL VEIN AND COULD BE FURTHER EVALUATED WITH DOPPLER ULTRASOUND. SERUM LACTIC ACID IS ALSO RANJANA MMENDED. 2. COMPLEX MASSLIKE FLUID COLLECTION IN THE LEFT LOWER QUADRANT EITHER CONTIGUOUS WITH 4 INTIMATELY A SSOCIATED WITH BOWEL WITH SURROUNDING INFLAMMATORY CHANGE. SUPERINFECTED NEOPLASM VERSUS ABSCESS ARE CONSIDERATIONS. THIS DOES CREATE AT LEAST PARTIAL SMALL BOWEL OBSTRUCTION AND CAN BE FURTHER EVALUATE D WITH CT WITH ORAL CONTRAST. 3. ABNORMAL SOFT TISSUE DENSITY WITHIN A LOOP OF SMALL BOWEL IN THE LEFT LOWER QUADRANT WITH SUBSEQUE NT DECOMPRESSED LOOPS OF SMALL BOWEL. ADDITIONAL SITE OF SMALL BOWEL NEOPLASM IS POSSIBLE. 3. DEPENDENT SIMPLE FREE FLUID AND MESENTERIC CONGESTION. AGAIN LACTIC ACID IS RECOMMENDED. FINDINGS WERE RELAYED TO THE ORDERING ER PROVIDER EUSEBIO REED BY DR. KOENIG AT 1305 02/12/2019.
[2019-02-12] MEDS ORDERED: cefTRIAXone IN SWFI 1,000 MG/10 ML SYRINGE IVP STA (14:10)
[2019-02-12 15:29] LABS: Partial Thromboplastin Time 28.7 sec (22.0-30.0); Prothrombin Time 10.7 sec (9.0-12.0)
[2019-02-12 17:23] VITALS: BP 141/77; PULSE 64; TEMP 97.6
== END 2019-02-12 17:44 | disposition other institution (70) ==
LOC: EC 08:47
DX: I81 Portal vein thrombosis (principal); K56.600 Partial intestinal obstruction, unspecified as to cause; K59.8 Other specified functional intestinal disorders; K63.89 Other specified diseases of intestine; E78.5 Hyperlipidemia, unspecified; Z87.891 Personal history of nicotine dependence; Z85.01 Personal history of malignant neoplasm of esophagus; Z86.73 Personal history of transient ischemic attack (TIA), and cerebral infarction without residual deficits; Z79.02 Long term (current) use of antithrombotics/antiplatelets; Z79.899 Other long term (current) drug therapy; Z88.8 Allergy status to other drugs, medicaments and biological substances; Z91.018 Allergy to other foods; Z88.0 Allergy status to penicillin
CPT/HCPCS: 36415; 80053; 82150; 83605; 83690; 85025; 85610; 85730; 74018; 74177; 99285; 96374; 96375; 96361; J0696; J1885; Q9967; 87040

== ENCOUNTER 2019-02-22 13:58 | Day surgery (SDC) | payer OTHER ==
[~2019-02-22 13:58] MED LIST changes: +HEPARIN SODIUM,PORCINE 5,000 UNIT/ML 1 ML VIAL SQ ONE; -LACTATED RINGERS 1,000 ML IV SCH; -LIDOCAINE 1% 20 ML VIAL (10MG/ML) FOR IV START INTRADERMA PRN; +Pre Op ABX Message 1 EACH MISC MISCELLANE ONE
[2019-02-22] MEDS ORDERED: LIDOCAINE 1% 20 ML VIAL (10MG/ML) FOR IV START INTRADERMA ONE (14:28)
[2019-02-22] MEDS ORDERED: LACTATED RINGERS 1,000 ML IV ONE (14:29)
[2019-02-22] MEDS ORDERED: ONDANSETRON 4 MG/2 ML VIAL IVP PRN (14:36)
[2019-02-22] MEDS ORDERED: HYDROmorphone 0.5 MG/0.5 ML SYRINGE IVP PRN (14:36)
[2019-02-22] MEDS ORDERED: LACTATED RINGERS 1,000 ML IV SCH (14:45)
[2019-02-22] MEDS ORDERED: ONDANSETRON 4 MG/2 ML VIAL IVP ONE (14:45)
[2019-02-22] MEDS ORDERED: fentaNYL (PF) 50 MCG/ML 2 ML AMP ONE (16:29)
[2019-02-22] MEDS ORDERED: PROPOFOL 10 MG/ML 20 ML VIAL IV ONE (16:29)
[2019-02-22] MEDS ORDERED: MIDAZOLAM 2 MG/2 ML VIAL ONE (16:29)
[2019-02-22] MEDS ORDERED: SODIUM CHLORIDE 0.9% 100 ML with ceFAZolin 2,000 MG IV ONE ×2 (16:41)
[2019-02-22] MEDS ORDERED: BUPIVACAIN-EPI 0.25%-1:200,000 30 ML VIAL SQ ONE (16:44)
[2019-02-22] MEDS ORDERED: NALOXONE 0.4 MG/ML 1 ML VIAL IV PRN (17:08)
[2019-02-22] MEDS ORDERED: HYDROcodone/APAP 5-325MG 1 EACH TAB PO PRN (17:08)
--- NOTE | 2019-02-22 17:10 | P.OP ---
Date of Procedure: 02/22/19 Procedure(s) Performed: PREOPERATIVE DIAGNOSIS: Left abdominal wall nodule POSTOPERATIVE DIAGNOSIS: Same PROCEDURE: Biopsy left abdominal wall nodule, intermediate closure SURGEON: Solo EBL: 2 mL ANESTHESIA: Sedation and local COMPLICATIONS: None OPERATIVE PROCEDURE: Patient placed in the supine position. The patient's abdomen prepped and draped in the usual sterile fashion. The patient's previous J-tube site was addressed. An elliptical incision was made and compassing the previous scar site. Dissection through the subcutaneous tissues took place using electrocautery. This portion of tissue was excised. At the base of the scar tissue there was a firm nodule that was whitish in color. This was excised using electrocautery as well. This was at the level of the fascia. This measured approximately 1 cm in size. Subcutaneous tissues were then closed using interrupted 3-0 Vicryl sutures. Length of intermediate closure 2.3 cm Skin closed using a running 4-0 Monocryl stitch. Skin glue was then applied. DISPOSITION: Stable to recovery room
[2019-02-22 17:22] VITALS: RESP 16; TEMP 98.6
[2019-02-22 17:57] VITALS: BP 105/71; PULSE 87
[2019-02-22] MEDS ORDERED: KETOROLAC 30 MG/ML 1 ML VIAL IVP SCH (18:00)
== END 2019-02-22 18:08 | disposition home or self-care (01) ==
LOC: OR 13:58
PROVIDERS: ATTEND Surgery
DX: C44.509 Unspecified malignant neoplasm of skin of other part of trunk (principal); I10 Essential (primary) hypertension; E78.5 Hyperlipidemia, unspecified; Z87.891 Personal history of nicotine dependence; I69.398 Other sequelae of cerebral infarction; Z86.79 Personal history of other diseases of the circulatory system; K21.9 Gastro-esophageal reflux disease without esophagitis; Z87.898 Personal history of other specified conditions; Z79.02 Long term (current) use of antithrombotics/antiplatelets; Z79.891 Long term (current) use of opiate analgesic; Z79.899 Other long term (current) drug therapy; Z88.0 Allergy status to penicillin; Z88.8 Allergy status to other drugs, medicaments and biological substances
CPT/HCPCS: 88305; 88342; 88341; 22900; J2250; J1644; J2405; J0690; J3010; J2704

== ENCOUNTER → 2019-02-24 | Outpatient (CLI) | payer OTHER ==
--- NOTE | 2019-02-27 07:46 | PE ---
"EXAMINATION TYPE: PET CT fusion skull to thigh DATE OF EXAM: 02/24/2019 COMPARISON: PET CT November 12, [address] abdomen and pelvis HISTORY: Esophageal cancer prog ress study completed chemotherapy December 2017 and radiation treatment January 2018 with surgery 2017. TECHNIQUE: Following the intravenous administration of 11.89 mCi of F-18 FDG, whole body images are performed from the skull base to the midthigh. Images are reviewed on the computer in the coronal, a xial, and sagittal planes. Reconstructed rotating images are created on independent workstation and reviewed on the computer. A noncontrast CT is performed in conjunction with the PET scan. SCAN: Subsequent Scan FINDINGS: SKULL BASE AND NECK: No new areas of suspicious hypermetabolic uptake. CHEST, MEDIASTINUM, AND HILAR REGION: Interval surgery with complete esophagectomy and gastric pull-u p. No new areas of suspicious hypermetabolic uptake. ABDOMEN AND PELVIS: Below diaphragm and surgical scot there is hypermetabolic roughly 1 cm in epig astric region axial image 136 with Max SUV 4.44, some additional suspicious areas for reference 1.1 c m nodule anterior right upper abdomen axial image 158 new from prior study but is ametabolic. There i s 2.2 cm hypermetabolic focus right hepatic lobe axial image [address] correlate. Max SUV is 3.98. The hypodense posterior focus on recent CT is not as well seen on noncontrast CT images . There is more suspicious right mid abdominal 2.3 cm hypermetabolic lesion axial CT image [address] image 162, max SUV is 4.79. Hypermetabolic uptake in wall of the complex masslike fluid collection is identified, size of the les ion is diminished from recent CT. Differential includes infected neoplasm versus abscess as appears t o be contiguous with small bowel loops similar to prior. Just inferior to this there is moderate colo tariq wall thickening with adjacent inflammatory change, acute diverticulitis cannot BE excluded axial image 210, some hypermetabolic uptake is present on PET images. OSSEOUS STRUCTURES: No new areas of hypermetabolic uptake. OTHER CT: Moderate calcified plaque bilateral carotid bulb level. Background Mild underlying emphysematous change. Coronary artery calcification is present which is no adam marker for underlying coronary artery disease. Marked fat replaced atrophy of pancreas redemonstrated. Prominent sigmoid colonic diverticulosis agai n seen. Small amount of free fluid in pelvis axial image 220 is slightly improved from recent CT. Sca ttered pelvic phleboliths. 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 Hepatic meta static disease cannot be excluded as detailed above. Persistent but improving left lower quadrant cav itary lesion as detailed above. Possible acute diverticulitis, correlate clinically. A Yellow level critical message alert has been initiated for Tono Gallegos MD via the VIEO 36 0 | Critical Results System on 02/27/2019 7:43 AM. This message alert has been sent to Tono Gallegos MD via the preferences provided by the clinician for the receipt of Radiology Critical Findings. [facility] ID [id number]."
== END | disposition home or self-care (01) ==
LOC: RADPETMAIN 13:56
PROVIDERS: ATTEND Internal Medicine Hematology & Oncology
DX: C78.6 Secondary malignant neoplasm of retroperitoneum and peritoneum (principal); Z92.21 Personal history of antineoplastic chemotherapy
CPT/HCPCS: 78815; A9552

== ENCOUNTER → 2019-03-01 | Outpatient (CLI) | payer OTHER ==
--- NOTE | 2019-03-02 11:43 | ECHOF ---
Referral Reason:C15.5 Esophageal Ca, Z01.818 Prechemo MEASUREMENTS -------- HEIGHT: 167.6 cm WEIGHT: 67.6 kg BP: RVIDd: 3.1 cm (< 3.3) IVSd: 0.7 cm (0.6 - 1.1) LVIDd: 4.2 cm (3.9 - 5.3) LVPWd: 1.0 cm (0.6 - 1.1) IVSs: 1.4 cm LVIDs: 2.8 cm LVPWs: 1.4 cm LAESV Index (A-L): 19.68 ml/m Ao Diam: 2.7 cm (2.0 - 3.7) AV Cusp: 2.0 cm (1.5 - 2.6) LA Diam: 3.6 cm (2.7 - 3.8) MV EXCURSION: 15.271 mm (> 18.000) MV EF SLOPE: 90 mm/s (70 - 150) EPSS: 0.5 cm MV E Keo: 0.88 m/s MV DecT: 221 ms MV A Keo: 0.71 m/s MV E/A Ratio: 1.24 RAP: 5.00 mmHg RVSP: 20.87 mmHg FINDINGS -------- Sinus rhythm. This was a technically difficult study with suboptimal views. The left ventricular size is normal. Left ventricular wall thickness is normal. Overall left vent ricular systolic function is low-normal with, an EF between 50 - 55 %. The diastolic filling patter n is normal for the age of the patient 10.07. Mid anterior LV wall motion is hypokinetic. The right ventricle is normal in size. The left atrial size is normal. Normal LA size by volume 22+/-6 ml/m2. The right atrial size is normal. Lumason used The aortic valve is trileaflet and appears structurally normal. The mitral valve is normal. There is trace mitral regurgitation. The tricuspid valve appears structurally normal. Trace tricuspid regurgitation present. Right pam tricular systolic pressure is normal at < 35 mmHg. There is no pulmonic regurgitation present. The aortic root size is normal. IVC Not well visulized. There is no pericardial effusion. CONCLUSIONS -------- 1. Sinus rhythm. 2. This was a technically difficult study with suboptimal views. 3. The left ventricular size is normal. 4. Left ventricular wall thickness is normal. 5. Overall left ventricular systolic function is low-normal with, an EF between 50 - 55 %. 6. The diastolic filling pattern is normal for the age of the patient 10.07 7. Mid anterior LV wall motion is hypokinetic. 8. The right ventricle is normal in size. 9. The left atrial size is normal. 10. Normal LA size by volume 22+/-6 ml/m2. 11. The right atrial size is normal. 12. Lumason used 13. The aortic valve is trileaflet and appears structurally normal. 14. The mitral valve is normal. 15. There is trace mitral regurgitation. 16. The tricuspid valve appears structurally normal. 17. Trace tricuspid regurgitation present. 18. Right ventricular systolic pressure is normal at < 35 mmHg. 19. There is no pulmonic regurgitation present. 20. The aortic root size is normal. 21. IVC Not well visulized. 22. There is no pericardial effusion. ALARM ADJUSTER: Edyta Horton RDCS
== END | disposition home or self-care (01) ==
LOC: RADECHMAIN 10:12
PROVIDERS: ATTEND Internal Medicine Hematology & Oncology
DX: I51.89 Other ill-defined heart diseases (principal); C15.5 Malignant neoplasm of lower third of esophagus
CPT/HCPCS: 93306; Q9950

== ENCOUNTER 2019-04-25 16:16 | Inpatient (IN) | payer OTHER ==
[2019-04-25] MEDS ORDERED: SODIUM CHLORIDE 0.9% 1,000 ML IV STA (16:51)
[2019-04-25] MEDS ORDERED: ONDANSETRON 4 MG/2 ML VIAL IVP STA (16:51)
[2019-04-25] MEDS ORDERED: HYDROmorphone 1 MG/ML 1 ML SYRINGE IVP STA (16:51)
[2019-04-25] MEDS ORDERED: FAMOTIDINE 20 MG/2 ML VIAL IV STA (16:52)
--- NOTE | 2019-04-25 16:55 | ED ---
General Adult HPI - General Chief complaint: Abdominal Pain Stated complaint: Abd pain Time Seen by Provider: 04/25/19 16:33 Source: patient, RN notes reviewed Mode of arrival: EMS Limitations: no limitations - History of Present Illness Initial comments: Patient is a pleasant 54-year-old male presenting to the emergency Department with complaints of abdominal discomfort. Onset of symptoms was today. Symptoms have progressively worsened since that time. Symptoms have somewhat improved with medication prior to arrival. Patient did have a normal bowel movement this morning. Patient has nausea without vomiting. Abdominal discomfort is diffuse. Patient does have similar symptoms previous associated with bowel obstruction. Patient has history of esophageal cancer and previous surgery. Patient does have a J-tube present. Patient still has active esophageal and colon cancer. - Related Data Home Medications Medication Instructions Recorded Confirmed Clopidogrel [Plavix] 75 mg PO DAILY 10/20/17 04/25/19 Simvastatin [Zocor] 40 mg PO DAILY 10/20/17 04/25/19 Omeprazole [PriLOSEC] 20 mg PO DAILY 12/05/17 04/25/19 Acetaminophen/Diphenhydramine 2 tab PO DAILY PRN 04/25/19 04/25/19 [Tylenol PM 500-25mg] Dronabinol [Marinol] 5 mg PO DAILY PRN 04/25/19 04/25/19 HYDROcodone/APAP 5-325MG [Mcdonough 1 tab PO Q6HR PRN 04/25/19 04/25/19 5-325] LORazepam [Ativan] 0.5 mg PO BID PRN 04/25/19 04/25/19 Prochlorperazine [Compazine] 10 mg PO Q4H PRN 04/25/19 04/25/19 Allergies Allergy/AdvReac Type Severity Reaction Status Date / Time atenolol [From Tenormin] Allergy Rash/Hives Verified 04/25/19 18:10 honey Allergy Swelling Verified 04/25/19 18:10 lisinopril [From Prinivil] Allergy Rash/Hives Verified 04/25/19 18:10 Penicillins Allergy Rash/Hives Verified 04/25/19 18:10 Review of Systems ROS Statement: Those systems with pertinent positive or pertinent negative responses have been documented in the HPI. ROS Other: All systems not noted in ROS Statement are negative. Constitutional: Denies: fever Eyes: Denies: eye pain ENT: Denies: ear pain Respiratory: Denies: cough, dyspnea Cardiovascular: Denies: chest pain Endocrine: Denies: fatigue Gastrointestinal: Reports: abdominal pain, nausea. Denies: vomiting Genitourinary: Denies: dysuria Musculoskeletal: Denies: back pain Skin: Denies: rash Neurological: Denies: weakness Past Medical History Past Medical History: Cancer, CVA/TIA, GI Bleed, Hyperlipidemia, Hypertension Additional Past Medical History / Comment(s): DYSPHAGIA, CVA 2010, STATES RT SIDE OF FACE NUMB, esophageal cancer History of Any Multi-Drug Resistant Organisms: None Reported Past Surgical History: Orthopedic Surgery Additional Past Surgical History / Comment(s): BONE SPUR REMOVED, EGD. Esophageal Surgery - 2017. Mediport and Feeding Tube - 2017. Mediport - 2018 gastric stenting Past Anesthesia/Blood Transfusion Reactions: No Reported Reaction Additional Past Anesthesia/Blood Transfusion Reaction / Comment(s): CLAUSTERPHOBIA Past Psychological History: No Psychological Hx Reported Smoking Status: Former smoker Past Alcohol Use History: None Reported Past Drug Use History: None Reported - Past Family History Father Family Medical History: COPD Mother Family Medical History: Cancer General Exam Limitations: no limitations General appearance: alert, in no apparent distress Head exam: Present: atraumatic Eye exam: Present: normal appearance, PERRL ENT exam: Present: normal oropharynx Neck exam: Present: normal inspection Respiratory exam: Present: normal lung sounds bilaterally Cardiovascular Exam: Present: regular rate, normal rhythm GI/Abdominal exam: Present: soft, tenderness (Moderate diffuse tenderness), normal bowel sounds. Absent: distended, guarding, rebound, rigid, pulsatile mass Extremities exam: Present: normal inspection Neurological exam: Present: alert Psychiatric exam: Present: normal affect, normal mood Skin exam: Present: normal color Course Vital Signs 04/25/19 04/25/19 04/25/19 16:32 16:37 17:00 Pulse Rate 81 81 85 Respiratory 18 20 18 Rate Blood Pressure 109/78 O2 Sat by Pulse 100 100 98 Oximetry 04/25/19 04/25/19 17:30 18:00 Pulse Rate 94 90 Respiratory 21 17 Rate Blood Pressure 109/78 109/78 O2 Sat by Pulse 99 98 Oximetry Medical Decision Making - Medical Decision Making Patient reevaluated and resting comfortably in bed. Patient does feel somewhat better. Case was discussed with Dr. Delarosa, covering for Dr. Craft, who will admit. Case also discussed with Dr. Keyes, covering for Dr. Cavazos. - Lab Data Result diagrams: 04/25/19 16:50 04/25/19 16:50 Lab Results 04/25/19 04/25/19 04/25/19 Range/Units 16:50 16:50 16:50 WBC 6.8 (3.8-10.6) k/uL RBC 3.49 L (4.30-5.90) m/uL Hgb 10.5 L (13.0-17.5) gm/dL Hct 32.9 L (39.0-53.0) % MCV 94.4 D (80.0-100.0) fL MCH 30.1 (25.0-35.0) pg MCHC 31.9 (31.0-37.0) g/dL RDW 20.3 H (11.5-15.5) % Plt Count 329 (150-450) k/uL Neutrophils % 88 % Lymphocytes % 6 % Monocytes % 4 % Eosinophils % 1 % Basophils % 1 % Neutrophils # 5.9 (1.3-7.7) k/uL Lymphocytes # 0.4 L (1.0-4.8) k/uL Monocytes # 0.3 (0-1.0) k/uL Eosinophils # 0.0 (0-0.7) k/uL Basophils # 0.0 (0-0.2) k/uL Anisocytosis Moderate Macrocytosis Slight PT 10.3 (9.0-12.0) sec INR 1.0 (<1.2) APTT 26.0 (22.0-30.0) sec Sodium 139 (137-145) mmol/L Potassium 4.2 (3.5-5.1) mmol/L Chloride 104 (98-107) mmol/L Carbon Dioxide 27 (22-30) mmol/L Anion Gap 8 mmol/L BUN 15 (9-20) mg/dL Creatinine 0.50 L (0.66-1.25) mg/dL Est GFR (CKD-EPI)AfAm >90 (>60 ml/min/1.73 sqM) Est GFR (CKD-EPI)NonAf >90 (>60 ml/min/1.73 sqM) Glucose 101 H (74-99) mg/dL Calcium 8.9 (8.4-10.2) mg/dL Total Bilirubin 0.3 (0.2-1.3) mg/dL AST 30 (17-59) U/L ALT 29 (21-72) U/L Alkaline Phosphatase 159 H (38-126) U/L Total Protein 6.6 (6.3-8.2) g/dL Albumin 3.3 L (3.5-5.0) g/dL Amylase 49 (30-110) U/L Lipase 63 (23-300) U/L - Radiology Data Radiology results: report reviewed (Computed tomography scan of the abdomen and pelvis does show stent through esophageal cancer and thoracic base. Some fluid and thickening. Transverse colon is prominent air-filled. Fecal debris extends. Some wall thickening of the small bowel loops not excluded. Dilation of small bowel loops not evident.) Disposition Clinical Impression: Abdominal pain Disposition: ADMITTED IP TO THIS HOSP Is patient prescribed a controlled substance at d/c from ED?: No Referrals: Neeru Craft DO [Primary Care Provider] - 1-2 days Decision Time: 19:08
[2019-04-25 17:29] LABS: ALT 29 U/L (21-72); AST 30 U/L (17-59); African American GFR (CKD) >90 (>60 ml/min/1.73 sqM); Albumin 3.3 g/dL (3.5-5.0); Alkaline Phosphatase 159 U/L (38-126); Amylase 49 U/L (30-110); Anion Gap 8 mmol/L; Blood Urea Nitrogen 15 mg/dL (9-20); Calcium 8.9 mg/dL (8.4-10.2); Carbon Dioxide 27 mmol/L (22-30); Chloride 104 mmol/L (98-107); Glucose 101 mg/dL (74-99); Potassium 4.2 mmol/L (3.5-5.1); Sodium 139 mmol/L (137-145); Total Bilirubin 0.3 mg/dL (0.2-1.3); Total Protein 6.6 g/dL (6.3-8.2)
[2019-04-25 17:30] LABS: Anisocytosis Moderate; Basophils % (A) 1 %; Eosinophils % (A) 1 %; HCT 32.9 % (39.0-53.0); HGB 10.5 gm/dL (13.0-17.5); Lymphocytes # (A) 0.4 k/uL (1.0-4.8); Lymphocytes % (A) 6 %; MCH 30.1 pg (25.0-35.0); MCHC 31.9 g/dL (31.0-37.0); Macrocytosis Slight; Mean Platelet Volume 7.8; Monocytes # (A) 0.3 k/uL (0-1.0); Monocytes % (A) 4 %; Neutrophils # (A) 5.9 k/uL (1.3-7.7); Neutrophils % (A) 88 %; Platelet Count 329 k/uL (150-450); RBC 3.49 m/uL (4.30-5.90); RDW 20.3 % (11.5-15.5); WBC 6.8 k/uL (3.8-10.6)
[2019-04-25 17:34] LABS: Prothrombin Time 10.3 sec (9.0-12.0)
[2019-04-25 17:42] LABS: MCV 94.4 fL (80.0-100.0)
--- NOTE | 2019-04-25 18:24 | CT ---
EXAMINATION TYPE: CT abdomen pelvis wo con DATE OF EXAM: 04/25/2019 COMPARISON: Localization CT from PET of 02/24/2019 INDICATION: Generalized abdominal pain. History of esophageal cancer. DLP: 454.4 mGycm, Automated exposure control for dose reduction was used. CONTRAST: 0 mL of Isovue 300. Study performed without Oral Contrast TECHNIQUE: Axial images were obtained from above the diaphragm to the pubic rami in the axial plane a t 5 mm thick sections. Reconstructed images are reviewed on the computer in the coronal plane. FINDINGS: Limited CT sections are obtained the lung bases. There is a stent through the esophageal cancer at t he thoracic base, neoplasm may extend above the stent there is fluid and thickening of the distal eso phagus above the stent. Small right pleural effusion is present. Coronary artery calcifications prese nt. CT ABDOMEN: Jejunal tube is present. Suspected intraperitoneal metastases are not easily identified w ith lack oral contrast. Liver: Normal Spleen: Normal Pancreas: Normal Adrenal glands: Right adrenal gland appears normal. Left adrenal gland appears thickened at 1.0 cm. Gallbladder: Normal Kidneys: No masses are evident. No hydronephrosis is present. No cysts are present. Delayed images were obtained through the kidneys, which remain unremarkable. Aorta: Vascular calcification is within the aorta. Inferior vena cava: Normal. CT PELVIS: Transverse colon is prominent air-filled. Fecal debris extends to the level of the rectum. Some wall thickening of the small bowel loops is not excluded. Dilated small bowel loops are not annie dent. No obvious obstruction is identified. Appendix: Normal as visualized Urinary bladder: Urinary bladder is decompressed and cannot be evaluated. Genitourinary structures: Prostate contains a small calcification. Osseous structures: No suspicious lytic or sclerotic lesions. IMPRESSIONS: 1.
[2019-04-25] MEDS ORDERED: NALOXONE 0.4 MG/ML 1 ML VIAL IV PRN (19:08)
[2019-04-25] MEDS ORDERED: ONDANSETRON 4 MG/2 ML VIAL IVP PRN (19:13)
[2019-04-25] MEDS: SODIUM CHLORIDE 0.9% 1,000 ML IV SCH (21:01)
[2019-04-25] MEDS: HYDROmorphone 1 MG/ML 1 ML SYRINGE IVP PRN (23:07)
[2019-04-26 03:20] VITALS: RESP 18
[2019-04-26 07:39] VITALS: BP 100/68; PULSE 91; TEMP 98.2
[2019-04-26] MEDS: SODIUM CHLORIDE 0.9% 1,000 ML IV SCH (09:13)
[2019-04-26] MEDS: HYDROmorphone 1 MG/ML 1 ML SYRINGE IVP PRN (09:19)
[2019-04-26] MEDS ORDERED: PROCHLORPERAZINE 10 MG TAB PO PRN (09:33)
[2019-04-26] MEDS ORDERED: LORazepam 0.5 MG TAB PO PRN (09:33)
[2019-04-26] MEDS ORDERED: HYDROcodone/APAP 5-325MG 1 EACH TAB PO PRN (09:33)
[2019-04-26 10:53] LABS: Appearance,Urine Clear (Clear); Bilirubin,Urine Negative (Negative); Blood,Urine Negative (Negative); Color,Urine Yellow; Glucose,Urine (UA) Negative (Negative); Ketones,Urine Negative (Negative); Leukocyte Esterase,Urine Moderate (Negative); Mucus,Urine Rare /hpf; Nitrite,Urine Negative (Negative); PH, Urine 5.5 (5.0-8.0); Protein,Urine Negative (Negative); RBC,Urine 1 /hpf (0-5); Specific Gravity,Urine 1.021 (1.001-1.035); WBC,Urine 19 /hpf (0-5)
[2019-04-26 14:57] VITALS: BMI 22.1
--- NOTE | 2019-04-26 17:02 | HP ---
HISTORY AND PHYSICAL This is a combined history and physical and discharge summary. DATE OF SERVICE: 04/26/2019 CHIEF COMPLAINT: Abdominal pain. HISTORY OF PRESENT ILLNESS: This 54-year-old gentleman with a past medical history of multiple medical problems, including history of GI bleed, hypertension, hyperlipidemia, history of dysphagia, history of CVA, has had esophageal surgery for malignancy. The patient also had a recent PET scan on 02/26/2019. The patient completed chemotherapy and radiation also. The patient also had PEG tube feeds. The patient is complaining of abdominal pain which is felt in the anterior part of the abdomen which is severe in character. The patient came to [facility] and was admitted for evaluation and treatment. With conservative treatment, the patient is feeling better. CT scan showed possible constipation, also. WBC 6.2, hemoglobin 10.5. Sodium 139, potassium 4.2. Patient is concerned because the symptoms are similar to the patient's previous symptoms. The patient is followed by Dr. Ordonez in the outpatient setting. PAST MEDICAL HISTORY: 1. History of CVA, TIA. 2. History of GI bleed. 3. Hypertension. 4. Hyperlipidemia. 5. History of dysphagia. 6. History of esophageal malignancy. HOME MEDICATIONS: 1. Wiseman 5 mg q.6 p.r.n. 2. Lipitor 20 mg daily. 3. Plavix 75 mg daily. 4. Dilaudid 1 mg q.3 p.r.n. 5. Ativan 0.5 mg b.i.d. 6. Narcan 0.2 q.2 p.r.n. 7. Zofran 4 mg IV q.8. 8. Compazine 10 mg q.4 p.r.n. PHYSICAL EXAMINATION: Patient is alert, oriented x3. Pulse 70, blood pressure 98/64, respiration 18, temperature 98.4, pulse ox 97% on room air. HEENT: Conjunctivae normal. NECK: No jugular venous distention. CARDIOVASCULAR SYSTEM: S1, S2 muffled. RESPIRATORY SYSTEM: Breath sounds diminished at the bases. No rhonchi. No crackles. ABDOMEN: Soft. Status post PEG tube in situ. Status post healed surgery. No mass palpable. Non-tender. Mild diffuse distention present. Bowel sounds present. No ascites. LEGS: No edema. No swelling. NERVOUS SYSTEM: Higher functions as mentioned earlier. Moves all 4 limbs. No focal motor or sensory deficit. LYMPHATICS: No lymph node palpable in neck, axillae or groin. SKIN: No ulcer, rash, bleeding. JOINTS: No active deforming arthropathy. LABS: WBC 6.8, hemoglobin 10.5. Sodium 139, potassium 4.2. Other labs are noted. ASSESSMENT: 1. Abdominal pain and nausea, possibly secondary to constipation. 2. History of esophageal malignancy, status post surgery, stenting. 3. On PEG tube feeds. 4. History of cerebrovascular accident, transient ischemic attack. 5. History of gastrointestinal bleed. 6. Hypertension. 7. Hyperlipidemia. 8. History of degenerative joint disease. 9. Remote history of ethanol. 10.History of claustrophobia. RECOMMENDATIONS AND DISCUSSION: I recommend to continue current medications, continue with symptomatic treatment. As mentioned earlier, CT scan showed some constipation. Patient is improving significantly. Patient is extremely keen on going home. Patient reports that he has chemotherapy tomorrow. I recommend the following advice and medications: 1. Follow closely with primary physician and Oncology in the outpatient setting. 2. Discharge diet is cardiac. 3. Activity limited until followup. 4. Follow up with Dr. Ordonez in 2 to 3 days. 5. Follow up with Dr. Gallegos as recommended. 6. Ativan 0.5 mg b.i.d. p.r.n. 7. Compazine 10 mg q.4 p.r.n. 8. Marinol 5 mg daily p.r.n. 9. Wiseman 5 mg q.6 p.r.n. 10.Plavix 75 mg p.o. daily. 11.Prilosec 20 mg p.o. daily. 12.Tylenol daily p.r.n. 13.Zocor 40 mg p.o. daily. Once again, the patient will be discharged in stable condition with guarded prognosis. MMODL / IJN: [id number] /
[2019-04-27] MEDS ORDERED: ATORVASTATIN 20 MG TAB PO SCH (09:00)
[2019-04-27] MEDS ORDERED: CLOPIDOGREL 75 MG TAB PO SCH (09:00)
== END 2019-04-26 14:45 | disposition home health service (06) | DRG 392 ==
LOC: EC 16:16 → 4MS4W 19:18
PROVIDERS: ADMIT Internal Medicine; ATTEND Internal Medicine
DX: K59.00 Constipation, unspecified (principal); C18.9 Malignant neoplasm of colon, unspecified; C15.9 Malignant neoplasm of esophagus, unspecified; E78.5 Hyperlipidemia, unspecified; F40.240 Claustrophobia; I10 Essential (primary) hypertension; Z79.02 Long term (current) use of antithrombotics/antiplatelets; Z79.899 Other long term (current) drug therapy; Z82.5 Family history of asthma and other chronic lower respiratory diseases; Z86.73 Personal history of transient ischemic attack (TIA), and cerebral infarction without residual deficits; Z87.891 Personal history of nicotine dependence; Z92.21 Personal history of antineoplastic chemotherapy; Z92.3 Personal history of irradiation; M19.90 Unspecified osteoarthritis, unspecified site; Z88.0 Allergy status to penicillin; Z88.8 Allergy status to other drugs, medicaments and biological substances
CPT/HCPCS: 36415; 74176; 80053; 81001; 82150; 83690; 85025; 85610; 85730; 87077; 87086; 87186; 96361; 96374; 96375; 99285

== ENCOUNTER → 2019-06-26 | Outpatient (CLI) | payer OTHER ==
--- NOTE | 2019-06-27 12:00 | ECHOF ---
Referral Reason:C15.5 Esophageal ca, Chemo Z01.818 MEASUREMENTS -------- HEIGHT: 167.6 cm WEIGHT: 52.2 kg BP: RVIDd: 3.1 cm (< 3.3) IVSd: 0.7 cm (0.6 - 1.1) LVIDd: 3.9 cm (3.9 - 5.3) LVPWd: 1.0 cm (0.6 - 1.1) IVSs: 1.2 cm LVIDs: 3.0 cm LVPWs: 1.4 cm LA Diam: 2.7 cm (2.7 - 3.8) Ao Diam: 3.4 cm (2.0 - 3.7) AV Cusp: 2.2 cm (1.5 - 2.6) MV EXCURSION: 22.451 mm (> 18.000) MV EF SLOPE: 87 mm/s (70 - 150) EPSS: 0.4 cm MV E Keo: 0.49 m/s MV DecT: 332 ms MV A Keo: 0.50 m/s MV E/A Ratio: 0.98 RAP: 15.00 mmHg RVSP: 30.05 mmHg TAPSE: 17.79 mm FINDINGS -------- Sinus rhythm. This was a technically adequate study. The left ventricular size is normal. Left ventricular wall thickness is normal. Overall left vent ricular systolic function is mild-moderately impaired with, an EF between 40 - 45 %. The diastolic filling pattern is normal for the age of the patient 6.36. The right ventricle is normal in size. Normal LA size by volume 22+/-6 ml/m2. The right atrium is normal in size. Interatrial and interventricular septum intact. The aortic valve is trileaflet and appears structurally normal. The mitral valve is normal. Mild tricuspid regurgitation present. Right ventricular systolic pressure is normal at < 35 mmHg. The pulmonic valve was not well visualized. The aortic root size is normal. Normal inferior vena cava with less than 50% inspiratory collapse consistent with estimated right atr ial pressure of 15 mmHg. There is no pericardial effusion. CONCLUSIONS -------- 1. Sinus rhythm. 2. This was a technically adequate study. 3. The left ventricular size is normal. 4. Left ventricular wall thickness is normal. 5. Overall left ventricular systolic function is mild-moderately impaired with, an EF between 40 - 45 %. 6. The diastolic filling pattern is normal for the age of the patient 6.36 7. The right ventricle is normal in size. 8. Normal LA size by volume 22+/-6 ml/m2. 9. The right atrium is normal in size. 10. Interatrial and interventricular septum intact. 11. The aortic valve is trileaflet and appears structurally normal. 12. The mitral valve is normal. 13. Mild tricuspid regurgitation present. 14. Right ventricular systolic pressure is normal at < 35 mmHg. 15. The pulmonic valve was not well visualized. 16. The aortic root size is normal. 17. Normal inferior vena cava with less than 50% inspiratory collapse consistent with estimated right atrial pressure of 15 mmHg. 18. There is no pericardial effusion. TRANSVERSE ABDOMINAL MUSCLE SURGEON: Nannette Núñez RDCS
== END | disposition home or self-care (01) ==
LOC: RADECHMAIN 12:57
PROVIDERS: ATTEND Internal Medicine Hematology & Oncology
DX: I07.1 Rheumatic tricuspid insufficiency (principal); C15.5 Malignant neoplasm of lower third of esophagus
CPT/HCPCS: 93306

== ENCOUNTER → 2019-07-07 | Outpatient (CLI) | payer OTHER ==
--- NOTE | 2019-07-09 12:08 | PE ---
Nuclear medicine PET/CT HISTORY: Esophageal carcinoma, subsequent Patient received 11 mCi F-18 FDG intravenously in delayed scanning was performed from skull base to t he mid thighs. Localization and attenuation correction CT scan was performed. Correlation to prior nuclear medicine PET/CT dated 02/24/2019 Head and neck: There is no evident cervical or supraclavicular adenopathy. 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 At the site of the proximal anastomo sis there is a focal area of hypermetabolic uptake present in the right lateral extent, SUV is 2.8. N onenlarged retrocaval pretracheal node in the precarinal location shows an SUV 2.1. There is a stent present at the gastroesophageal junction level with internal debris present. Small right pleural eff usion is present. Right upper lobe nodule is present on axial image 57 measuring 5 mm. There is some subpleural nodularity present in the right lung base. No associated hypermetabolic uptake however. Th ere is a port in the right pectoral region, right jugular intravenous catheter courses to the level o f the cavoatrial junction. ABDOMEN: There is a focus of uptake present in the left upper quadrant associated with the portion of colon similar to prior exam, the uptake slightly more intense, SUV is 4.5. There is a jejunostomy in the left lower quadrant. Some uptake associated with the bowel is felt likely to be physiologic. Jose Guadalupe ng the pelvic sidewall on the left there is a small focus of uptake present which was not seen on gricel or exam. Retained fecal debris present within the rectum. No inguinal adenopathy. Prostate shows some associated calcification. Osseous structures show no associated hypermetabolic uptake. Uptake in the left hand and wrist likely due to infiltration of the dose. IMPRESSION: Foci of hypermetabolic uptake as described.
== END | disposition home or self-care (01) ==
LOC: RADPETMAIN 14:05
PROVIDERS: ATTEND Internal Medicine Hematology & Oncology
DX: R93.0 Abnormal findings on diagnostic imaging of skull and head, not elsewhere classified (principal); R93.89 Abnormal findings on diagnostic imaging of other specified body structures; C15.5 Malignant neoplasm of lower third of esophagus
CPT/HCPCS: 78815; A9552

== ENCOUNTER → 2019-08-09 | Outpatient (CLI) | payer OTHER ==
--- NOTE | 2019-08-09 13:28 | CT ---
EXAMINATION TYPE: CT abdomen pelvis wo con DATE OF EXAM: 08/09/2019 COMPARISON: PET/CT 07/07/2019 INDICATION: Carcinoma of Esophagus DLP: 760 mGycm, Automated exposure control for dose reduction was used. CONTRAST: 0 mL of Isovue 300. Study performed without Oral Contrast TECHNIQUE: Axial images were obtained from above the diaphragm to the pubic rami in the axial plane a t 5 mm thick sections. Reconstructed images are reviewed on the computer in the coronal plane. FINDINGS: Limited CT sections are obtained the lung bases. There is a small right pleural effusion.. There is irregular thickening of the distal esophagus compatible with esophageal cancer. A stent is present a t the gastroesophageal junction. CT ABDOMEN: Jejunal tube is evident. Liver: Normal Spleen: Normal Pancreas: Normal Adrenal glands: The adrenal glands are normal. Gallbladder: Normal Kidneys: No masses are evident. No hydronephrosis is present. No cysts are present. Study is witho ut oral contrast limiting evaluation. No suspicious renal stones are evident. Aorta: Vascular calcification is within the aorta. Inferior vena cava: Normal. CT PELVIS: Loops of bowel within the abdomen and pelvis are normal. Study is performed without oral contrast limiting bowel evaluation. Fecal debris is within the colon. Appendix: Normal as visualized. There is a small amount of fluid adjacent to the appendix. Clinical m anagement of any suspected appendicitis is recommended. Urinary bladder: Normal. Genitourinary structures: Prostate is unremarkable. A few calcifications are present. Osseous structures: No suspicious lytic or sclerotic lesions. IMPRESSIONS: 1. Thickening of the distal esophagus and fluid. Findings are compatible with the patient's history of esophageal cancer. 2 small amount of fluid may be adjacent to the appendix. Clinical management of any suspected appendicitis will be required.
--- NOTE | 2019-08-09 13:35 | CT ---
EXAMINATION TYPE: CT chest w con DATE OF EXAM: 08/09/2019 COMPARISON: 09/22/2018 HISTORY: Carcinoma of Esophagus CT DLP: 760 mGycm, Automated exposure control for dose reduction was used. CONTRAST: Performed injected with 40 ml mL of Isovue 300. TECHNIQUE: Axial images were obtained at 5 mm thick sections. Reconstructed images are reviewed on [employer] computer in the coronal plane. FINDINGS: Portion of the thyroid visualized is normal. No suspicious lung nodules. There is some infiltrate along the posterior medial right midlung. Correl ate for atelectasis or pneumonia. Underlying mass is difficult to exclude Colonic interposition is present on the right. There is a stent placement through the expected region of the gastroesophageal junction. No enlarged mediastinal or hilar adenopathy is evident. The ascending aorta diameter at the level o f the main pulmonary artery is 2.9 cm. The main pulmonary artery diameter at the bifurcation is 2.[address] sections are obtained through the upper abdomen. Abdomen is essentially unremarkable. IMPRESSIONS: 1. Colonic interposition appears stable. 2. Small right pleural effusion, new. There is a new stent placement at the gastroesophageal junction .
== END | disposition home or self-care (01) ==
LOC: RADCTMAIN 12:11
PROVIDERS: ATTEND Internal Medicine Hematology & Oncology
DX: J90 Pleural effusion, not elsewhere classified (principal); C15.5 Malignant neoplasm of lower third of esophagus; Z96.89 Presence of other specified functional implants; Z88.0 Allergy status to penicillin; Z91.018 Allergy to other foods
CPT/HCPCS: 71260; 74176; Q9967

== ENCOUNTER 2019-09-03 21:09 | Inpatient (IN) | payer OTHER ==
[2019-09-03] MEDS ORDERED: SODIUM CHLORIDE 0.9% 1,000 ML IV STA (21:39)
[2019-09-03] MEDS ORDERED: HYDROcodone/APAP 5-325MG 1 EACH TAB PO STA (21:43)
--- NOTE | 2019-09-03 21:44 | ED ---
General Adult HPI - General Chief complaint: Chest Pain Stated complaint: Chest Pain Time Seen by Provider: 09/03/19 21:14 Source: family, EMS Mode of arrival: EMS Limitations: no limitations - History of Present Illness Initial comments: Dictation was produced using F[employer] dictation software. please excuse any grammatical, word or spelling errors. Chief Complaint: 54-year-old male past medical history of esophageal cancer since of chest pain, left arm pain and right leg pain History of Present Illness: 54-year-old male with past medical history of esophageal cancer presents with 2 days of chest pain, left arm pain and right leg pain. Patient states reports that he had an EGD today however there is no documentation of that in our EMR. Patient states that his symptoms have been ongoing for 2 days. He states he has left bicep pain and right quadriceps pain. He states that the pain is in the muscle. It does not reproduce with movement or palpation. Patient also reports substernal chest pain. States sharp. No radiation. Patient's limited historian secondary to inability to verbalize secondary to his cancer. His cancer doctor is Dr. Gallegos. He is not currently on any chemo or radiation therapy. Patient is scheduled to have a CT tomorrow. Patient denies any history of blood clots. Says no to shortness of breath. He says no to calf pain. He says he had a scope performed by Dr. Menjivar. The ROS documented in this emergency department record has been reviewed and confirmed by me. Those systems with pertinent positive or negative responses have been documented in the HPI. All other systems are other negative and/or noncontributory. PHYSICAL EXAM: General Impression: Alert and oriented x3, not in acute distress, severely cachectic HEENT: Normocephalic atraumatic, extra-ocular movements intact, pupils equal and reactive to light bilaterally, mucous membranes moist. Cardiovascular: Heart regular rate and rhythm, S1&S2 audible, no murmurs, rubs or gallops Chest: Lungs clear to auscultation bilaterally, no rhonchi, no wheeze, no rales, port in the right chest Abdomen: Bowel sounds present, abdomen soft, non-tender, non-distended, no organomegaly Musculoskeletal: Pulses present and equal in all extremities, no peripheral edema Motor: no focal deficits noted Neurological: CN II-XII grossly intact, no focal motor or sensory deficits noted Skin: Intact with no visualized rashes Psych: Normal affect and mood ED course:-year-old male with pain complaints. He states he has chest pain, left biceps pain and right quadriceps pain. Patient is cachectic sick at bedside. Pain is not reproduced. Extremities are ranged without any antalgia. Appears well-appearing. Vital signs upon arrival shows heart rate of 110, worse vital signs within acceptable limits. Laboratory evaluation obtained. Patient is leukocytosis of 18.7, hemoglobin stable at 8.1. No thrombocytosis or thrombocytopenia. Coag panel unremarkable. D-dimer is elevated 2.67. Halina is unremarkable. No signs of acute kidney injury. Troponin is negative. No signs of rhabdomyolysis. Chest x-ray shows right lower lobe infiltrate. Because patient has elevated d-dimer he sent over to CT to rule out pulmonary embolus. Patient also ordered for CT which she was supposed to get tomorrow of the neck for the diagnosis of hoarseness. Discussed patient case with Gayatri who is healthcare consultant for [facility]. Patient will be admitted. No signs of septic shock.. Patient given vancomycin and cefepime for concern of hospital-acquired pneumonia and due to patient's comorbidities.Soft tissue neck CT shows no discrete neck mass. CT angios the chest was obtained due to elevated d-dimer does not show any pulmonary emboli. There is right lower lobe airspace consolidation there is increase. There is concern for infectious process. Patient given antibiotics. Patient will be admitted. Discussed patient case with Gayatri who is healthcare consultant for [facility]. Patient evaluated bedside management of symptoms of septic shock. At this point there is some concern for pneumonia. Oncology will be consulted. EKG interpretation: Ventricular rate 106, sinus tachycardia,. 144, QRS 78, QTc 456. No HI prolongation, no QTC prolongation, no ST or T-wave changes noted. EKG compared to 10/29/2014 showing no changes. Overall, this EKG is unremarkable - Related Data Home Medications Medication Instructions Recorded Confirmed Clopidogrel [Plavix] 75 mg PO DAILY 10/20/17 09/03/19 Simvastatin [Zocor] 40 mg PO DAILY 10/20/17 09/03/19 Omeprazole [PriLOSEC] 20 mg PO BID 12/05/17 09/03/19 Prochlorperazine [Compazine] 10 mg PO Q6H PRN 04/25/19 09/03/19 Gabapentin [Neurontin] 100 mg PO BID 09/03/19 09/03/19 Mupirocin 2% Oint [Bactroban 2% 1 applic TOPICAL TID 09/03/19 09/03/19 Oint] Allergies Allergy/AdvReac Type Severity Reaction Status Date / Time atenolol [From Tenormin] Allergy Rash/Hives Verified 09/03/19 22:30 honey Allergy Swelling Verified 09/03/19 22:30 lisinopril [From Prinivil] Allergy Rash/Hives Verified 09/03/19 22:30 Penicillins Allergy Rash/Hives Verified 09/03/19 22:30 Review of Systems ROS Statement: Those systems with pertinent positive or pertinent negative responses have been documented in the HPI. ROS Other: All systems not noted in ROS Statement are negative. Past Medical History Past Medical History: Cancer, CVA/TIA, GI Bleed, Hyperlipidemia, Hypertension Additional Past Medical History / Comment(s): DYSPHAGIA, CVA 2009, STATES RT SIDE OF FACE NUMB, esophageal cancer History of Any Multi-Drug Resistant Organisms: None Reported Past Surgical History: Orthopedic Surgery Additional Past Surgical History / Comment(s): BONE SPUR REMOVED, EGD. Esophageal Surgery - 2017. Mediport and Feeding Tube - 2017. Mediport - 2018 Past Anesthesia/Blood Transfusion Reactions: No Reported Reaction Additional Past Anesthesia/Blood Transfusion Reaction / Comment(s): CLAUSTER PHOBIA Past Psychological History: No Psychological Hx Reported Smoking Status: Former smoker - Past Family History Father Family Medical History: COPD Mother Family Medical History: Cancer General Exam Limitations: no limitations Course Vital Signs 09/03/19 09/04/19 21:12 00:06 Temperature 98.8 F Pulse Rate 110 H 108 H Respiratory 16 16 Rate Blood Pressure 130/74 96/69 O2 Sat by Pulse 99 97 Oximetry Medical Decision Making - Lab Data Result diagrams: 09/03/19 21:25 09/03/19 21:25 Lab Results 09/03/19 09/03/19 09/03/19 Range/Units 21:25 21:25 21:25 WBC 18.7 H (3.8-10.6) k/uL RBC 2.64 L (4.30-5.90) m/uL Hgb 8.1 L (13.0-17.5) gm/dL Hct 25.6 L (39.0-53.0) % MCV 97.1 (80.0-100.0) fL MCH 30.7 (25.0-35.0) pg MCHC 31.6 (31.0-37.0) g/dL RDW 16.8 H (11.5-15.5) % Plt Count 368 (150-450) k/uL Neutrophils % 92 % Lymphocytes % 3 % Monocytes % 3 % Eosinophils % 0 % Basophils % 0 % Neutrophils # 17.3 H (1.3-7.7) k/uL Lymphocytes # 0.5 L (1.0-4.8) k/uL Monocytes # 0.6 (0-1.0) k/uL Eosinophils # 0.0 (0-0.7) k/uL Basophils # 0.0 (0-0.2) k/uL Anisocytosis Slight Macrocytosis Slight PT 13.0 H (9.0-12.0) sec INR 1.3 H (<1.2) APTT 35.5 H (22.0-30.0) sec D-Dimer 2.67 H (<0.60) mg/L FEU Sodium 134 L (137-145) mmol/L Potassium 3.8 (3.5-5.1) mmol/L Chloride 98 (98-107) mmol/L Carbon Dioxide 29 (22-30) mmol/L Anion Gap 7 mmol/L BUN 22 H (9-20) mg/dL Creatinine 0.40 L (0.66-1.25) mg/dL Est GFR (CKD-EPI)AfAm >90 (>60 ml/min/1.73 sqM) Est GFR (CKD-EPI)NonAf >90 (>60 ml/min/1.73 sqM) Glucose 108 H (74-99) mg/dL Plasma Lactic Acid Chapin (0.7-2.0) mmol/L Calcium 8.7 (8.4-10.2) mg/dL Magnesium 2.1 (1.6-2.3) mg/dL Total Bilirubin 0.8 (0.2-1.3) mg/dL AST 21 (17-59) U/L ALT 10 (4-49) U/L Alkaline Phosphatase 233 H (38-126) U/L Creatine Kinase <20 L (55-170) U/L Troponin I (0.000-0.034) ng/mL Total Protein 6.7 (6.3-8.2) g/dL Albumin 2.9 L (3.5-5.0) g/dL 09/03/19 09/03/19 Range/Units 21:25 21:25 WBC (3.8-10.6) k/uL RBC (4.30-5.90) m/uL Hgb (13.0-17.5) gm/dL Hct (39.0-53.0) % MCV (80.0-100.0) fL MCH (25.0-35.0) pg MCHC (31.0-37.0) g/dL RDW (11.5-15.5) % Plt Count (150-450) k/uL Neutrophils % % Lymphocytes % % Monocytes % % Eosinophils % % Basophils % % Neutrophils # (1.3-7.7) k/uL Lymphocytes # (1.0-4.8) k/uL Monocytes # (0-1.0) k/uL Eosinophils # (0-0.7) k/uL Basophils # (0-0.2) k/uL Anisocytosis Macrocytosis PT (9.0-12.0) sec INR (<1.2) APTT (22.0-30.0) sec D-Dimer (<0.60) mg/L FEU Sodium (137-145) mmol/L Potassium (3.5-5.1) mmol/L Chloride (98-107) mmol/L Carbon Dioxide (22-30) mmol/L Anion Gap mmol/L BUN (9-20) mg/dL Creatinine (0.66-1.25) mg/dL Est GFR (CKD-EPI)AfAm (>60 ml/min/1.73 sqM) Est GFR (CKD-EPI)NonAf (>60 ml/min/1.73 sqM) Glucose (74-99) mg/dL Plasma Lactic Acid Chapin 1.1 (0.7-2.0) mmol/L Calcium (8.4-10.2) mg/dL Magnesium (1.6-2.3) mg/dL Total Bilirubin (0.2-1.3) mg/dL AST (17-59) U/L ALT (4-49) U/L Alkaline Phosphatase (38-126) U/L Creatine Kinase (55-170) U/L Troponin I <0.012 (0.000-0.034) ng/mL Total Protein (6.3-8.2) g/dL Albumin (3.5-5.0) g/dL Disposition Clinical Impression: Chest pain Disposition: ADMITTED IP TO THIS [facility] Condition: Fair Decision Time: 00:49
[2019-09-03 21:48] LABS: Anisocytosis Slight; Basophils % (A) 0 %; Eosinophils % (A) 0 %; HCT 25.6 % (39.0-53.0); HGB 8.1 gm/dL (13.0-17.5); Lymphocytes # (A) 0.5 k/uL (1.0-4.8); Lymphocytes % (A) 3 %; MCH 30.7 pg (25.0-35.0); MCHC 31.6 g/dL (31.0-37.0); MCV 97.1 fL (80.0-100.0); Macrocytosis Slight; Mean Platelet Volume 8.6; Monocytes # (A) 0.6 k/uL (0-1.0); Monocytes % (A) 3 %; Neutrophils # (A) 17.3 k/uL (1.3-7.7); Neutrophils % (A) 92 %; Platelet Count 368 k/uL (150-450); RBC 2.64 m/uL (4.30-5.90); RDW 16.8 % (11.5-15.5); WBC 18.7 k/uL (3.8-10.6)
--- NOTE | 2019-09-03 21:58 | XR ---
EXAMINATION TYPE: XR chest 2V DATE OF EXAM: 09/03/2019 COMPARISON: NONE HISTORY: Chest pain TECHNIQUE: FINDINGS: There is airspace patchy consolidation in the basal segments of the right lower lobe. Left lung is fairly clear. There is small left pleural effusion. There is right pleural effusion. There is no heart failure. Heart size is normal. There is right central venous catheter with tip in the super ior vena cava. IMPRESSION: Right lower lobe pneumonia. Bilateral small pleural effusions. No obvious heart failure.
[2019-09-03 22:00] LABS: ALT 10 U/L (4-49); AST 21 U/L (17-59); African American GFR (CKD) >90 (>60 ml/min/1.73 sqM); Albumin 2.9 g/dL (3.5-5.0); Alkaline Phosphatase 233 U/L (38-126); Anion Gap 7 mmol/L; Blood Urea Nitrogen 22 mg/dL (9-20); Calcium 8.7 mg/dL (8.4-10.2); Carbon Dioxide 29 mmol/L (22-30); Chloride 98 mmol/L (98-107); Creatine Kinase <20 U/L (55-170); Glucose 108 mg/dL (74-99); Magnesium 2.1 mg/dL (1.6-2.3); Non-African American GFR(CKD) >90 (>60 ml/min/1.73 sqM); Potassium 3.8 mmol/L (3.5-5.1); Sodium 134 mmol/L (137-145); Total Bilirubin 0.8 mg/dL (0.2-1.3); Total Protein 6.7 g/dL (6.3-8.2)
[2019-09-03] MEDS ORDERED: VANCOMYCIN IV PER PHARMACY 1 EACH MISC MISCELLANE PRN (22:05)
[2019-09-03] MEDS ORDERED: SODIUM CHLORIDE 0.9% 500 ML 500 ML IV STA (22:05)
[2019-09-03] MEDS ORDERED: MORPHINE SULFATE 4 MG/ML SYRINGE IV STA (22:09)
[2019-09-03 22:10] LABS: INR 1.3 (<1.2)
[2019-09-03 22:11] LABS: Partial Thromboplastin Time 35.5 sec (22.0-30.0)
[2019-09-03] MEDS ORDERED: CEFEPIME 2 GM in SODIUM CHLORIDE 0.9% 100 ML IVPB ONE (22:15)
[2019-09-03] MEDS ORDERED: VANCOMYCIN 1,000 MG in SODIUM CHLORIDE 0.9% 250 ML IVPB ONE (22:30)
[2019-09-03 22:47] LABS: D-Dimer 2.67 mg/L FEU (<0.60)
[2019-09-03] MEDS ORDERED: PNEUMONIA PROTOCOL UTILIZED 1 EACH MISC PO PRN (23:49)
--- NOTE | 2019-09-04 00:44 | CT ---
EXAMINATION TYPE: CT angio chest DATE OF EXAM: 09/04/2019 COMPARISON: 08/09/2019 HISTORY: Elevated d-dimer CT DLP: mGycm Automated exposure control for dose reduction was used. CONTRAST: Performed , patient injected with mL of . The contrast was Isovue 100 mL. There are 3-D post processed images. There is right pleural effusion. There is right lower lobe consolidation and atelectasis. There is ap parent gastric pull-through procedure with surgical clips in the posterior mediastinum. Thoracic aort a is intact. There is no aneurysm or dissection. There is stent at the diaphragmatic hiatus. The neoe sophagus is distended with fluid and air. I see no filling defects in the pulmonary arteries. There is no mediastinal adenopathy. There is increased soft tissue density at the diaphragmatic hiatus there is no sign of pneumoperitone um in the upper images through the abdomen. The left lung is fairly clear. The bony thorax appears in tact. There is jejunostomy tube in the left upper quadrant. No pneumothorax. IMPRESSION: No evidence of pulmonary embolism. Right lower lobe airspace consolidation and atelectasis is significantly increased compared to last C T scan. Small right pleural effusion is similar to old exam. Retained material in the pneumocephalus esophagus similar to old exam.
--- NOTE | 2019-09-04 00:47 | CT ---
EXAMINATION TYPE: CT soft tissue neck w con DATE OF EXAM: 09/04/2019 COMPARISON: None HISTORY: Hoarseness CT DLP: mGycm Automated exposure control for dose reduction was used. CONTRAST: Performed , patient injected with mL of . The contrast was Isovue 100 mL. There is normal branching pattern of the great vessels on the aortic arch. There is apparent medial e sophagus with air-fluid level in the gastric pull-through procedure. There is normal contrast opacifi cation of the carotid arteries and jugular veins. There is opacification of both vertebral arteries. Epiglottis appears normal. Subglottic trachea appears normal. Prevertebral soft tissues appear normal . Tonsils and adenoids appear normal. There is no evidence of a pharyngeal mass. The parotid glands a re symmetric. Submandibular salivary glands are symmetric. I see no significant cervical adenopathy. Exam limited by metal artifact from the dental work. Orbits appear intact. There is fairly normal aer ation of the paranasal sinuses. Cervical spine is intact. IMPRESSION: Negative exam. No discrete neck mass.
[2019-09-04 04:55] VITALS: TEMP 97.6
[2019-09-04] MEDS ORDERED: CEFEPIME 2 GM in SODIUM CHLORIDE 0.9% 100 ML IVPB ONE (05:00)
[2019-09-04] MEDS: VANCOMYCIN 1,000 MG in SODIUM CHLORIDE 0.9% 250 ML IVPB SCH ×2 (07:46→18:19)
[2019-09-04 10:37] VITALS: BMI 16.7
[2019-09-04] MEDS ORDERED: HYDROcodone/APAP 5-325MG 1 EACH TAB PO PRN (10:52)
[2019-09-04] MEDS ORDERED: TEMAZEPAM 15 MG CAP PO PRN (10:53)
[2019-09-04] MEDS ORDERED: ONDANSETRON 4 MG/2 ML VIAL IVP PRN (11:16)
[2019-09-04] MEDS ORDERED: PANTOPRAZOLE 40 MG/10 ML VIAL IVP SCH (11:30)
[2019-09-04] MEDS: HYDROmorphone 0.5 MG/0.5 ML SYRINGE IVP PRN ×2 (11:32→11:37)
[2019-09-04 13:27] VITALS: BP 112/72; RESP 17
[2019-09-04] MEDS ORDERED: PROCHLORPERAZINE 10 MG TAB PO PRN (14:49)
[2019-09-04] MEDS ORDERED: IPRATROPIUM-ALBUTEROL 3 ML NEB INHALATION PRN (14:50)
[2019-09-04] MEDS ORDERED: ALPRAZolam 0.25 MG TAB PO PRN (14:51)
[2019-09-04] MEDS ORDERED: ACETAMINOPHEN TAB 500 MG TAB PO PRN (14:51)
[2019-09-04] MEDS ORDERED: HEPARIN SODIUM,PORCINE 5,000 UNIT/ML 1 ML VIAL SQ SCH (15:00)
--- NOTE | 2019-09-04 15:23 | XR ---
EXAMINATION TYPE: XR Hip Complete RT, XR femur RT DATE OF EXAM: 09/04/2019 CLINICAL HISTORY: Pain. TECHNIQUE: AP and frogleg views of the right hip and femur are obtained. COMPARISON: None. FINDINGS: There is no acute fracture/dislocation evident in the right hip and femur. Right hip joint space fairly well maintained. Femoral head shape preserved. Overlying Soft tissue unremarkable. Imag es of the right femur show no acute fracture. There is posterior vascular calcification. Right knee j oint shows mild to moderate tricompartment joint space loss. IMPRESSION: As above.
[2019-09-04] MEDS ORDERED: CEFEPIME 2 GM in SODIUM CHLORIDE 0.9% 100 ML IVPB SCH (16:00)
[2019-09-04] MEDS ORDERED: MUPIROCIN 2% OINT 22 GM TUBE TOPICAL SCH (16:00)
[2019-09-04] MEDS: IPRATROPIUM-ALBUTEROL 3 ML NEB INHALATION SCH ×2 (16:37→20:37)
[2019-09-04 16:51] VITALS: PULSE 110
[2019-09-04 16:52] LABS: Appearance,Urine Clear (Clear); Bilirubin,Urine Negative (Negative); Blood,Urine Negative (Negative); Color,Urine Yellow; Glucose,Urine (UA) Negative (Negative); Ketones,Urine Negative (Negative); Leukocyte Esterase,Urine Negative (Negative); Nitrite,Urine Negative (Negative); PH, Urine 5.5 (5.0-8.0); Protein,Urine Trace (Negative); Specific Gravity,Urine 1.044 (1.001-1.035); Urobilinogen,Urine <2.0 mg/dL (<2.0)
--- NOTE | 2019-09-04 16:55 | HP ---
HISTORY AND PHYSICAL DATE OF SERVICE: 09/04/2019 CHIEF COMPLAINTS: Chest pain, leg pain and shortness of breath. HISTORY OF PRESENT ILLNESS: This 54-year-old gentleman with a past medical history of multiple medical problems, including esophageal carcinoma, status post radiation and chemotherapy, hypertension, hyperlipidemia, history of GI bleed, history of dysphagia, history of DJD, EGD, esophageal surgery, MediPort feeding tube, history of claustrophobia, being followed by Dr. Ordonez in the outpatient setting, was complaining of increased shortness of breath over the past several days. The patient also had chest pain, mostly in the left arm and also right leg pain. Because of multiple complex medical issues, the patient came to [facility] and was admitted for further evaluation and treatment. The patient had some cough, but the patient had no contact with any sick individuals or any travel at this time. Otherwise, Dr. Gallegos has seen the patient previously. A CT angio of the chest showed right lower lobe pneumonia and there is no evidence of pulmonary embolism. Patient was admitted for further evaluation and treatment. There is no history of any fever, rigor or chills. No history of headache, loss of consciousness, seizures, either. Initial troponins are negative. The EKG, which I reviewed personally, showed sinus tachycardia with ST-T changes. No history of headache, loss of consciousness, seizures. PAST MEDICAL HISTORY: History of esophageal cancer, history of CVA, TIA, GI bleed, hypertension, hyperlipidemia, history of dysphagia. HOME MEDICATIONS: 1. Plavix 75 mg p.o. daily. 2. Compazine 10 mg q.6 p.r.n. 3. Prilosec 20 mg b.i.d. 4. Bactroban 1 application t.i.d. 5. Neurontin 100 mg p.o. b.i.d. 6. Zocor 40 mg p.o. daily. ALLERGIES: ATENOLOL, HONEY, LISINOPRIL, PENICILLIN, AMBIEN. FAMILY HISTORY: History of COPD in the family. SOCIAL HISTORY: Previous history of smoking. No current smoking or alcohol intake. REVIEW OF SYSTEMS: ENT: Diminished hearing. Diminished vision. CARDIOVASCULAR SYSTEM: No angina, palpitations. RESPIRATORY SYSTEM: As mentioned earlier. GI: As mentioned earlier. : No dysuria or retention. NERVOUS SYSTEM: As mentioned earlier. ALLERGY/IMMUNOLOGY: No asthma, hayfever. MUSCULOSKELETAL: As mentioned earlier. HEMATOLOGY/ONCOLOGY: As mentioned earlier. ENDOCRINE: No history of diabetes, hypothyroidism. CONSTITUTIONAL: As mentioned earlier. DERMATOLOGY: Negative. RHEUMATOLOGY: Negative. PSYCHIATRY: As mentioned earlier. PHYSICAL EXAMINATION: Patient alert and oriented x3. Pulse 107, blood pressure 112/72, respirations 17, temperature 97.6, pulse ox 91% on room air. HEENT: Conjunctivae normal. Oral mucosa moist. NECK: No jugular venous distention. No carotid bruit. No lymph node enlargement. CARDIOVASCULAR SYSTEM: S1, S2 muffled. RESPIRATORY SYSTEM: Breath sounds diminished at the bases. Bilateral scattered rhonchi and crackles. Expiratory wheezing also present. ABDOMEN: Soft. Scaphoid. PEG tube in situ. LEGS: No edema. No swelling. NERVOUS SYSTEM: Higher functions as mentioned earlier. Moves all 4 limbs. Diffusely emaciated and weak. LYMPHATICS: No lymph node palpable in neck, axillae or groin. SKIN: No ulcer, rash, bleeding. JOINTS: No active deforming arthropathy. Examination of right leg and right hip is fairly painful. LABS/IMAGING: WBC 18.6, hemoglobin 8.1. INR is 1.3. D-dimer is 2.67. Sodium is 134. Chest x-ray, personally reviewed by me, shows right lower lobe pneumonia. ASSESSMENT: 1. Right lower lobe pneumonia, possibly Gram-negative, possibly aspiration with possible sepsis, present on admission. 2. Left-sided chest pain. Rule out coronary artery disease. 3. Increased white count. 4. Anemia, normocytic. 5. Right thigh pain for evaluation. 6. Increased D-dimer with no evidence of any pulmonary embolism. 7. Hyponatremia. 8. Hypoalbuminemia with severe protein-calorie malnutrition with body mass index of 16.8. 9. History of esophageal cancer, status post surgery. 10.Status post PEG tube placement. 11.History of cerebrovascular accident, transient ischemic attack. 12.History of gastrointestinal bleed. 13.Hypertension. 14.Hyperlipidemia. 15.History of right face numbness. 16.History of claustrophobia. 17.Remote history of nicotine dependence. 18.Possible chronic obstructive pulmonary disease. RECOMMENDATIONS AND DISCUSSION: In this 54-year-old gentleman who presented with multiple complex medical issues, we will monitor the patient closely, continue the current medications, continue symptomatic treatment. Will initiate broad-spectrum IV antibiotics. Otherwise, bronchodilators, IV steroids empirically, and I would also recommend DVT prophylaxis. Resume the home medications. Symptomatic treatment for the pain. I would also recommend pulmonary evaluation. Dr. Gallegos has been consulted. Tube feeds to be resumed. Aspiration precautions. The overall prognosis is extremely guarded in this severely emaciated individual with multiple complex medical issues. Further recommendations to follow. A copy of this dictation is forwarded to Dr. Ordonez, who is the primary physician. MMODL / IJN: [id number] / MTDD
[2019-09-04] MEDS: methylPREDNISolone SOD SUCCI 125 MG/2 ML VIAL IV SCH ×2 (16:57→18:19)
[2019-09-04] MEDS ORDERED: INSULIN ASPART (NovoLOG) 100 UNIT/ML VIAL SQ SCH (17:30)
[2019-09-04 17:49] LABS: Glucose,Whole Blood 80 mg/dL (75-99)
--- NOTE | 2019-09-04 17:54 | P.CONS ---
History of Present Illness - Reason for Consult Consult date: 09/04/19 esophageal adenocarcinoma Requesting physician: Koby Pino - Chief Complaint SOB, AVEL, cough - History of Present Illness Mr Griffiths is a very pleasant 54-year-old male patient of Dr. Gallegos who presented to his PCP Dr. Craft with progressive dysphagia, 3-4 months, 30 pound weight loss in October 2017. He had an EGD on 10/24/17 revealing a large hiatal hernia with distal esophageal lesion. 12/29/17 he had an upper GI bleed he was taken to [facility] transferred to [facility] and seen by Dr. Wagner. Bleeding was stopped, J-tube was placed. He was started on concurrent radiation with weekly carbo/Taxol therapy. Completed concurrent XRT/Chemo, post Tx PET 01/29/[address] [facility], surgery 03/10/18, 1.5mm residual disease, minimal disease in 07/19 LN identified. He did well until February 2019, complaints of progressive weakness, inability to tolerate liquids, abdominal pain. 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 He was hospitalized in March [facility] for small bowel obstruction, he had exploratory surgery with enterostomy. 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 He was started on Taxol/carboplatin/Herceptin 03/08-07/09. More recently having symptoms, was to start nivolumab in Jul, he has wanted to wait to start treatment. Patient states that prior to admission he had increased shortness of breath, cough, he denied fevers, chills, he has rather persistent nausea, he does try to swallow some foods/liquids orally but, most of his nutrition is through the PEG tube, he denies any abdominal pain, cramping, acute changes in bowel or bladder habits. He has not been on treatment since June. I asked him if he thought he aspirated, he said he thinks he might have. Reviewed CT that was performed because of his difficulty breathing, no PE, RLL consolidations suspicious for pneumonia, there was nothing suspicious on CT of the neck. Review of Systems 14 point review of systems is negative except as stated in HPI Past Medical History Past Medical History: Cancer, CVA/TIA, GI Bleed, Hyperlipidemia, Hypertension Additional Past Medical History / Comment(s): DYSPHAGIA, CVA 2010, STATES RT SIDE OF FACE NUMB, esophageal cancer History of Any Multi-Drug Resistant Organisms: None Reported Past Surgical History: Orthopedic Surgery Additional Past Surgical History / Comment(s): BONE SPUR REMOVED, EGD. Esophageal Surgery - 2017. Mediport and Feeding Tube - 2017. Mediport - 2018 Past Anesthesia/Blood Transfusion Reactions: No Reported Reaction Additional Past Anesthesia/Blood Transfusion Reaction / Comm: CLAUSTERPHOBIA Past Psychological History: No Psychological Hx Reported Smoking Status: Former smoker Past Alcohol Use History: Occasional Past Drug Use History: None Reported - Past Family History Father Family Medical History: COPD Mother Family Medical History: Cancer Medications and Allergies Home Medications Medication Instructions Recorded Confirmed Type Clopidogrel [Plavix] 75 mg PO DAILY 10/20/17 09/03/19 History Simvastatin [Zocor] 40 mg PO DAILY 10/20/17 09/03/19 History Omeprazole [PriLOSEC] 20 mg PO BID 12/05/17 09/03/19 History Prochlorperazine [Compazine] 10 mg PO Q6H PRN 04/25/19 09/03/19 History Gabapentin [Neurontin] 100 mg PO BID 09/03/19 09/03/19 History Mupirocin 2% Oint [Bactroban 2% 1 applic TOPICAL TID 09/03/19 09/03/19 History Oint] Allergies Allergy/AdvReac Type Severity Reaction Status Date / Time atenolol [From Tenormin] Allergy Rash/Hives Verified 09/03/19 22:30 honey Allergy Swelling Verified 09/03/19 22:30 lisinopril [From Prinivil] Allergy Rash/Hives Verified 09/03/19 22:30 Penicillins Allergy Rash/Hives Verified 09/03/19 22:30 zolpidem [From Ambien] AdvReac Hallucinati Verified 09/04/19 04:57 ons Physical Exam Vitals: Vital Signs Temp Pulse Pulse Resp BP BP Pulse Ox 09/04/19 13:26 97.6 F 107 H 17 112/72 91 L 09/04/19 08:00 102 H 18 09/04/19 04:54 97.6 F 102 H 18 96/62 93 L 09/04/19 01:25 97.4 F L 108 H 18 96/64 96 09/04/19 00:06 108 H 16 96/69 97 09/03/19 21:12 98.8 F 110 H 16 130/74 99 Intake and Output 09/04/19 09/04/19 09/04/19 06:59 14:59 22:59 Intake Total 1880 Balance 1880 Intake: Intake, IV Titration 1850 Amount Cefepime 2 gm In Sodium 100 Chloride 0.9% 100 ml @ 200 mls/hr IVPB ONCE ONE Rx#:[id number] Sodium Chloride 0.9% 500 1500 ml 500 ml @ 999 mls/hr IV .Q31M STA Rx#:[id number] Vancomycin 1,000 mg In 250 Sodium Chloride 0.9% 250 ml @ 125 mls/hr IVPB ONCE ONE Rx#:[id number] Oral 30 Other: # Voids 2 2 Weight 47.174 kg 47.174 kg - Constitutional emaciated General appearance: cooperative, mild distress - EENT Eyes: anicteric sclerae, EOMI ENT: hearing grossly normal - Neck Neck: no lymphadenopathy - Respiratory Respiratory: right: rhonchi, bilateral: diminished - Cardiovascular Rhythm: regular Heart sounds: normal: S1, S2 Abnormal Heart Sounds: no systolic murmur, no diastolic murmur, no rub, no S3 Gallop, no S4 Gallop, no click, no other leg Peripheral Edema: bilateral: None - Gastrointestinal General gastrointestinal: no absent bowel sounds, no decreased bowel sounds, no distended, no hepatomegaly, no hyperactive bowel sounds, normal bowel sounds, no organomegaly, no rigid, no scaphoid, soft, no splenomegaly, no tenderness, no umbilical hernia, no ventral hernia - Integumentary Integumentary: pale - Neurologic Neurologic: CNII-XII intact - Musculoskeletal muscle wasting of the bilateral masseter Musculoskeletal: generalized weakness - Psychiatric Psychiatric: A&O x's 3, appropriate affect, intact judgment & insight Results CBC & Chem 7: 09/03/19 21:25 09/03/19 21:25 Labs: Abnormal Lab Results - Last 24 Hours (Table) 09/03/19 09/03/19 09/03/19 Range/Units 21:25 21:25 21:25 WBC 18.7 H (3.8-10.6) k/uL RBC 2.64 L (4.30-5.90) m/uL Hgb 8.1 L (13.0-17.5) gm/dL Hct 25.6 L (39.0-53.0) % RDW 16.8 H (11.5-15.5) % Neutrophils # 17.3 H (1.3-7.7) k/uL Lymphocytes # 0.5 L (1.0-4.8) k/uL PT 13.0 H (9.0-12.0) sec INR 1.3 H (<1.2) APTT 35.5 H (22.0-30.0) sec D-Dimer 2.67 H (<0.60) mg/L FEU Sodium 134 L (137-145) mmol/L BUN 22 H (9-20) mg/dL Creatinine 0.40 L (0.66-1.25) mg/dL Glucose 108 H (74-99) mg/dL Alkaline Phosphatase 233 H (38-126) U/L Creatine Kinase <20 L (55-170) U/L Albumin 2.9 L (3.5-5.0) g/dL Comments: CT of the neck report reviewed CT scan - chest: report reviewed (right lower lobe consolidation/atelectasis/pleural effusion, no PE) Assessment and Plan (1) Pneumonia Narrative/Plan: Defer management of the same to Attending and Pulmonary Current Visit: Yes Status: Acute Priority: High Code(s): J18.9 - PNEUMONIA, UNSPECIFIED ORGANISM SNOMED Code(s): 994963855 (2) Esophageal adenocarcinoma Narrative/Plan: Patient has been scheduled for treatment with volume. Patient requested delay in starting treatment, actually requested to start next week. Recommend follow up with primary Oncologist prior to initiation of treatment to re-evaluate performance status after he recovers from current acute illness Current Visit: Yes Status: Acute Priority: High Code(s): C15.9 - MALIGNANT NEOPLASM OF ESOPHAGUS, UNSPECIFIED SNOMED Code(s): 574262364 (3) Iron deficiency anemia due to dietary causes Narrative/Plan: Patient just received 2 doses of Feraheme in the office in the last couple of weeks. No additional iron at this time. Too soon to recheck iron studies. Transfuse to keep hemoglobin greater than 7. Patient is supplemented with PEG tube feeding. Current Visit: Yes Status: Acute Priority: Medium Code(s): D50.8 - OTHER IRON DEFICIENCY ANEMIAS SNOMED Code(s): 182654529
[2019-09-04] MEDS ORDERED: GABAPENTIN 100 MG CAP PO SCH (21:00)
[2019-09-04] MEDS ORDERED: NON FORMULARY DRUG (Omeprazole 20 MG) PO SCH (21:00)
[2019-09-05] MEDS ORDERED: VANCOMYCIN TROUGH DUE 1 EACH MISC MISCELLANE ONE (07:00)
[2019-09-05] MEDS ORDERED: ATORVASTATIN 20 MG TAB PO SCH (09:00)
[2019-09-05] MEDS ORDERED: CLOPIDOGREL 75 MG TAB PO SCH (09:00)
[2019-09-05] MEDS ORDERED: MULTIVITAMINS, THERA 1 EACH TAB PO SCH (12:00)
--- NOTE | 2019-09-07 16:29 | CDI ---
Documentation Clarification Form Date: 09/07/19 From: Victorina Chapman CCS Phone: If you have a question about this query, please contact Sheri Millard, Burn Nurse at [phone] between 8am and 5pm. Admit Date: 09/03/19 Discharge Date:09/04/19 Patient Name: Will Griffiths Visit Number: [id number] ATTENTION: The Clinical Documentation Specialists (CDI) and [facility] Coding Staff appreciate your assistance in clarifying documentation. Please respond to the clarification below the line at the bottom and electronically sign. The CDI & [facility] Coding staff will review the response and follow-up if needed. Please note: Queries are made part of the Legal Health Record. If you have any questions, please contact the author of this message via ITS. Dear Dr. Romero, The patient presented with the following pneumonia with possible sepsis. History/Risk Factors: Esophageal cancer w/ mets, PEG tube, Anemia, Malnutrition Clinical Indicators: Tachycardia, Elevated WBC WBC: 18.7 Lactic acid: 1.1 Blood cultures: No growth after 72 hours Vitals signs on admission: BP 96/69, ND 108, RR 16, Temp 98.8, O2 Sat 97 Treatment: Vancomycin 1000 mg IVPB Q8HR Antibiotics: IV Bolus: Sodium Chloride 0.9% 1,000 ml IV 999 ml/hr Other: Patient left AMA In your professional opinion, please clarify if these findings signify one of the following conditions, whether the condition is POA, and cause, if known: Condition Sepsis ruled out Sepsis Severe Sepsis Septic Shock Other, please specify Unable to determine SIRS Criteria (2 or more of the following may indicate SIRS): -Temperature < 96.8F (36C) or > 101.0F (38.3C) -Heart Rate > 90 bpm -Respiratory Rate > 20 breaths/min or PaCO2 < 32 mmHg -White Blood Cell Count > 12,000 or < 4,000 cells/mm3 or > 10% bands -Lactate >2.0 mmol/L (>4.0 is equivalent to septic shock) Unable to determine MTDD
--- NOTE | 2019-09-08 20:30 | DS ---
DISCHARGE SUMMARY FINAL DIAGNOSES: 1. Right lower lobe pneumonia possibly gram-negative possibly aspiration with aspiration, present on admission. 2. Left-sided chest pain of undetermined etiology. 3. Increased WBC. 4. Anemia, normocytic. 5. Right thigh pain. 6. Increased D-dimer. 7. Hyponatremia. 8. Hypoalbuminemia. 9. History of esophageal cancer. 10.Status post PEG tube placement. 11.History of cerebrovascular accident, transient ischemic attack. 12.Gastrointestinal bleed. 13.Hyperlipidemia. 14.Hypertension. 15.History of right face numbness. 16.History of claustrophobia. 17.Remote history of nicotine dependence. 18.Possible chronic obstructive pulmonary disease. DISCHARGE DISPOSITION: The patient left the hospital AGAINST MEDICAL ADVICE. HISTORY OF PRESENT ILLNESS: This 54-year-old gentleman with past medical history of multiple medical problems admitted with multiple medical issues as mentioned earlier, but however the patient is not willing to stay. The patient left the hospital AGAINST MEDICAL ADVICE. Please refer to the previous H&P and staff notes and other notes for further information. MMODL / IJN: [id number] /
== END 2019-09-04 20:32 | disposition left against medical advice (07) | DRG 177 ==
LOC: EC 21:09 → 5NMEDONC 23:49
PROVIDERS: ADMIT Hospitalist; ATTEND Hospitalist
PROC: 3E0G76Z Introduction of Nutritional Substance into Upper GI, Via Natural or Artificial Opening (ICD-10-PCS; principal; 2019-09-04)
DX: J15.6 Pneumonia due to other Gram-negative bacteria (principal); E43 Unspecified severe protein-calorie malnutrition; R64 Cachexia; E87.1 Hypo-osmolality and hyponatremia; C15.9 Malignant neoplasm of esophagus, unspecified; C78.6 Secondary malignant neoplasm of retroperitoneum and peritoneum; Z68.1 Body mass index [BMI] 19.9 or less, adult; J44.0 Chronic obstructive pulmonary disease with (acute) lower respiratory infection; J69.0 Pneumonitis due to inhalation of food and vomit; R00.0 Tachycardia, unspecified; I10 Essential (primary) hypertension; E78.5 Hyperlipidemia, unspecified; R13.10 Dysphagia, unspecified; M19.90 Unspecified osteoarthritis, unspecified site; K44.9 Diaphragmatic hernia without obstruction or gangrene; D63.0 Anemia in neoplastic disease; D50.8 Other iron deficiency anemias; F40.240 Claustrophobia; M79.651 Pain in right thigh; Z71.3 Dietary counseling and surveillance; Z79.02 Long term (current) use of antithrombotics/antiplatelets; Z79.899 Other long term (current) drug therapy; Z86.73 Personal history of transient ischemic attack (TIA), and cerebral infarction without residual deficits; Z87.19 Personal history of other diseases of the digestive system; Z98.890 Other specified postprocedural states; Z95.828 Presence of other vascular implants and grafts; Z87.891 Personal history of nicotine dependence; Z92.21 Personal history of antineoplastic chemotherapy; Z92.3 Personal history of irradiation; Z87.39 Personal history of other diseases of the musculoskeletal system and connective tissue; Z93.1 Gastrostomy status; Z88.0 Allergy status to penicillin; Z88.8 Allergy status to other drugs, medicaments and biological substances; Z91.018 Allergy to other foods; Z82.5 Family history of asthma and other chronic lower respiratory diseases; Z80.9 Family history of malignant neoplasm, unspecified
CPT/HCPCS: 36415; 70491; 71046; 71275; 73502; 80053; 81003; 82550; 83605; 83735; 84484; 85025; 85379; 85610; 85730; 87040; 87070; 87077; 87186; 87205; 93005; 94640; 96365; 96367; 96375; 99285